=== PATIENT | female | born 1940 | race Caucasian/White ===

== ENCOUNTER → 2016-07-17 | Outpatient (CLI) | payer MEDICARE, BC ==
--- NOTE | 2016-07-17 12:48 | FL ---
EXAMINATION TYPE: FL barium swallow w video DATE OF EXAM: 07/17/2016 11:52 AM COMPARISON: NONE HISTORY: Dysphasia, food sticking in upper throat TECHNIQUE: Fluoroscopy. FINDINGS: Fluoroscopic guidance was provided for the procedure performed in conjunction with the [facility] pathology department. Please see complete report forthcoming from the Speech Pathology departmen t. Various consistencies from thin liquid to solids were administered. No aspiration or penetration was evident. No significant pooling was observed in the vallecula. There was normal propulsion of the bolus within the hypopharynx. Note is made of some presbyesophagus with secondary and tertiary contractions within the esophagus. IMPRESSION: 1. Normal modified barium swallow. 2. Presbyesophagus.
== END | disposition home or self-care (01) ==
LOC: RADFLMAIN 11:07
PROVIDERS: ATTEND Psychiatry & Neurology Neurology
DX: K22.8 Other specified diseases of esophagus (principal)
CPT/HCPCS: 74230

== ENCOUNTER 2017-06-05 17:35 | Inpatient (IN) | payer MEDICARE, BC ==
[2017-06-05] MEDS ORDERED: SODIUM CHLORIDE 0.9% 1,000 ML IV ONE (17:39)
--- NOTE | 2017-06-05 17:55 | ED ---
General Adult HPI - General Chief complaint: Altered Mental Status Stated complaint: Altered mental status Time Seen by Provider: 06/05/17 17:39 Source: patient, RN notes reviewed, old records reviewed Mode of arrival: EMS Limitations: altered mental status - History of Present Illness Initial comments: 77-year-old presents with chief complaint of confusion. Patient is normally alert and oriented 4, according to EMS she was alert and oriented 2. Patient was seen normal. This morning with normal mentation. No history of cough or dyspnea, no history nausea vomiting or diarrhea. Patient is alert and oriented 2 with time my evaluation, she has no pain complaints. Further history will be obtained from the patient's family. - Related Data Home Medications Medication Instructions Recorded Confirmed Levothyroxine Sodium [Synthroid] 50 mcg PO DAILY 11/06/13 06/05/17 Multivitamin/Iron/Folic Acid 1 tab PO DAILY 11/06/13 06/05/17 [Centrum Complete Multivit Tab] Spironolactone [Aldactone] 25 mg PO DAILY 11/06/13 06/05/17 rOPINIRole HCL [Requip] 2 mg PO BID 11/06/13 06/05/17 Calcium Carbonate [Calcium] 600 mg PO DAILY 09/24/15 06/05/17 Furosemide [Lasix] 20 mg PO DAILY 09/24/15 06/05/17 L.acidoph,Paracasei, B.lactis 1 cap PO DAILY 09/24/15 06/05/17 [Probiotic] Omeprazole 20 mg PO DAILY 09/24/15 06/05/17 Amoxicillin 2,000 mg PO ONCE 06/05/17 06/05/17 Carvedilol [Coreg] 6.25 mg PO BID 06/05/17 06/05/17 Gabapentin [Neurontin] 300 mg PO DAILY 06/05/17 06/05/17 HYDROcodone/APAP 10-325MG [[place] 1 tab PO Q6H PRN 06/05/17 06/05/17 10-325] Allergies Allergy/AdvReac Type Severity Reaction Status Date / Time adhesive tape AdvReac Rash/Hives Verified 06/05/17 17:49 Calcium Channel Blocking AdvReac Unknown Verified 06/05/17 18:06 Agent Dilt diclofenac sodium AdvReac Rash/Hives Verified 06/05/17 17:49 [From Voltaren] lansoprazole [From Prevacid] AdvReac Diarrhea Verified 06/05/17 17:49 meclofenamate sodium AdvReac Rash/Hives Verified 06/05/17 17:49 [From Meclomen] minocycline [Minocycline] AdvReac Unknown Verified 06/05/17 17:49 NSAIDS (Non-Steroidal AdvReac Unknown Verified 06/05/17 17:49 Anti-Inflamma pregabalin [From Lyrica] AdvReac Swelling Verified 06/05/17 17:49 sertraline HCl [From Zoloft] AdvReac Diarrhea Verified 06/05/17 17:49 Sulfa (Sulfonamide AdvReac Rash/Hives Verified 06/05/17 17:49 Antibiotics) Review of Systems ROS Statement: Those systems with pertinent positive or pertinent negative responses have been documented in the HPI. ROS Other: All systems not noted in ROS Statement are negative. 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, hialtal hernia, shingles>10 years ago, History of Any Multi-Drug Resistant Organisms: None Reported Past Surgical History: Breast Surgery, Hernia Repair, Hysterectomy, Joint Replacement Additional Past Surgical History / Comment(s): ron total knee replacements ; right total shoulder surgery;lumpectomy left breast, deviated septum repari,jaw sx for overbite,DeQuervains release rt wrist, rt wrist tendon lenghtening,d&c, lt knee partial synovectomy 1983,ron carpal tunnel release/ulnar nerve, synovectomy w/partial resection ulnar styloid lt wrist,radioulnar jt,resection ulnar head tendon lt wrist,chondroplasty,lat tibial plateau.exc trapezium w/ ligament reconstruction,arthroplasty lt thumb/ Past Anesthesia/Blood Transfusion Reactions: Postoperative Nausea & Vomiting ( PONV) Additional Past Anesthesia/Blood Transfusion Reaction / Comment(s): past blood transfusion after knee sx- no reaction. Past Psychological History: Anxiety, Depression Smoking Status: Never smoker Past Alcohol Use History: None Reported Past Drug Use History: None Reported - Past Family History Mother Family Medical History: Cancer, CVA/TIA Additional Family Medical History / Comment(s): tia's and rectal cancer-lived to be 99 Father Additional Family Medical History / Comment(s): at age 59 from als General Exam Limitations: altered mental status General appearance: alert, in no apparent distress Head exam: Present: atraumatic, normocephalic Eye exam: Present: normal appearance, PERRL, EOMI ENT exam: Present: mucous membranes dry Neck exam: Present: normal inspection. Absent: tenderness, meningismus Respiratory exam: Present: normal lung sounds bilaterally. Absent: respiratory distress, wheezes Cardiovascular Exam: Present: regular rate, normal rhythm GI/Abdominal exam: Present: soft. Absent: distended, tenderness Extremities exam: Present: normal inspection, normal capillary refill. Absent: pedal edema Neurological exam: Present: alert, CN II-XII intact. Absent: oriented X3, motor sensory deficit Skin exam: Present: warm, dry, intact. Absent: cyanosis, diaphoretic Course Vital Signs 06/05/17 06/05/17 17:43 19:32 Temperature 96.9 F L Pulse Rate 82 78 Respiratory 22 18 Rate Blood Pressure 170/85 137/70 O2 Sat by Pulse 93 L 99 Oximetry - Reevaluation(s) Reevaluation #1: 06/05/17 19:34 History obtained from the patient's son, according to patient's son she has had several falls over the past several weeks, she is also had decreased appetite and is barely been eating anything. Her family doctor is aware of this. Confusion began today although the onset is uncertain. She does have caregivers throughout the day. EKG Findings - EKG Comments: EKG Findings:: EKG is poor baseline secondary to tremor, sinus rhythm with sinus arrhythmia, ventricular rate 66, para 184, QS duration 84, there is T- wave abnormality in the lateral precordium, voltage criteria for LVH, no ST segment elevation. Medical Decision Making - Medical Decision Making 69 H old female presenting with altered mental status, worsening confusion over the past several hours. Patient is nonfocal on neurologic examination. She is alert and oriented although she is unable to give a complete history. Patient' s son states she has had intermittent confusion over the past several weeks, as well as decreased by mouth intake. CT was obtained, there is no intracranial hemorrhage, there is a hypodensity in the right parietal lobe concerning for cortical infarct. Given the unknown onset of symptoms, as well as waxing and waning confusion with nonfocal neurological exam and NIH of 0, she is not a candidate for TPA. X-ray shows pleural reaction right lung base, no focal pneumonia. Creatinine is worsened 1.3 from baseline 0.3. Troponin is also elevated with some nonspecific EKG changes. Given the patient's presentation, and lack of chest pain this number will be trended with no additional acute management in the emergency department. Both stroke and elevated troponin are discussed with the patient's son who is her power of claim attorney, he is a nurse and does not want any aggressive measures for his mother. - Lab Data Result diagrams: 06/05/17 18:20 06/05/17 18:20 Lab Results 06/05/17 06/05/17 06/05/17 Range/Units 18:06 18:20 18:20 WBC 9.3 (3.8-10.6) k/uL RBC 4.68 (3.80-5.40) m/uL Hgb 12.9 (11.4-16.0) gm/dL Hct 39.7 (34.0-46.0) % MCV 84.8 (80.0-100.0) fL MCH 27.6 (25.0-35.0) pg MCHC 32.6 (31.0-37.0) g/dL RDW 17.0 H (11.5-15.5) % Plt Count 167 (150-450) k/uL Neutrophils % 85 % Lymphocytes % 7 % Monocytes % 6 % Eosinophils % 1 % Basophils % 0 % Neutrophils # 7.9 H (1.3-7.7) k/uL Lymphocytes # 0.7 L (1.0-4.8) k/uL Monocytes # 0.5 (0-1.0) k/uL Eosinophils # 0.1 (0-0.7) k/uL Basophils # 0.0 (0-0.2) k/uL Anisocytosis Slight PT (9.0-12.0) sec INR (<1.2) APTT (22.0-30.0) sec VBG pH (7.31-7.41) VBG pCO2 (37-51) mmHg VBG HCO3 (24-28) mmol/L Sodium (137-145) mmol/L Potassium (3.5-5.1) mmol/L Chloride (98-107) mmol/L Carbon Dioxide (22-30) mmol/L Anion Gap mmol/L BUN (7-17) mg/dL Creatinine (0.52-1.04) mg/dL Est GFR (MDRD) Af Amer (>60 ml/min/1.73 sqM) Est GFR (MDRD) Non-Af (>60 ml/min/1.73 sqM) Glucose (74-99) mg/dL POC Glucose (mg/dL) 118 H (75-99) mg/dL POC Glu Box Toe Cutter ID Jose Ramon Nichols Plasma Lactic Acid Triston (0.7-2.0) mmol/L Calcium (8.4-10.2) mg/dL Total Bilirubin (0.2-1.3) mg/dL AST (14-36) U/L ALT (9-52) U/L Alkaline Phosphatase (38-126) U/L Total Creatine Kinase 40 (30-135) U/L CK-MB (CK-2) 6.2 H* (0.0-2.4) ng/mL CK-MB (CK-2) Rel Index 15.5 Troponin I 0.052 H* (0.000-0.034) ng/mL Total Protein (6.3-8.2) g/dL Albumin (3.5-5.0) g/dL Influenza Type A RNA (Not Detectd) Influenza Type B (PCR) (Not Detectd) 06/05/17 06/05/17 06/05/17 Range/Units 18:20 18:20 18:20 WBC (3.8-10.6) k/uL RBC (3.80-5.40) m/uL Hgb (11.4-16.0) gm/dL Hct (34.0-46.0) % MCV (80.0-100.0) fL MCH (25.0-35.0) pg MCHC (31.0-37.0) g/dL RDW (11.5-15.5) % Plt Count (150-450) k/uL Neutrophils % % Lymphocytes % % Monocytes % % Eosinophils % % Basophils % % Neutrophils # (1.3-7.7) k/uL Lymphocytes # (1.0-4.8) k/uL Monocytes # (0-1.0) k/uL Eosinophils # (0-0.7) k/uL Basophils # (0-0.2) k/uL Anisocytosis PT 9.6 (9.0-12.0) sec INR 1.0 (<1.2) APTT 25.3 (22.0-30.0) sec VBG pH (7.31-7.41) VBG pCO2 (37-51) mmHg VBG HCO3 (24-28) mmol/L Sodium 139 (137-145) mmol/L Potassium 3.6 (3.5-5.1) mmol/L Chloride 97 L (98-107) mmol/L Carbon Dioxide 29 (22-30) mmol/L Anion Gap 13 mmol/L BUN 35 H (7-17) mg/dL Creatinine 1.30 H (0.52-1.04) mg/dL Est GFR (MDRD) Af Amer 48 (>60 ml/min/1.73 sqM) Est GFR (MDRD) Non-Af 40 (>60 ml/min/1.73 sqM) Glucose 119 H (74-99) mg/dL POC Glucose (mg/dL) (75-99) mg/dL POC Glu Box Toe Cutter ID Plasma Lactic Acid Triston (0.7-2.0) mmol/L Calcium 9.7 (8.4-10.2) mg/dL Total Bilirubin 1.2 (0.2-1.3) mg/dL AST 35 (14-36) U/L ALT 55 H (9-52) U/L Alkaline Phosphatase 146 H (38-126) U/L Total Creatine Kinase (30-135) U/L CK-MB (CK-2) (0.0-2.4) ng/mL CK-MB (CK-2) Rel Index Troponin I (0.000-0.034) ng/mL Total Protein 6.2 L (6.3-8.2) g/dL Albumin 3.4 L (3.5-5.0) g/dL Influenza Type A RNA Not Detected (Not Detectd) Influenza Type B (PCR) Not Detected (Not Detectd) 06/05/17 06/05/17 Range/Units 18:20 18:20 WBC (3.8-10.6) k/uL RBC (3.80-5.40) m/uL Hgb (11.4-16.0) gm/dL Hct (34.0-46.0) % MCV (80.0-100.0) fL MCH (25.0-35.0) pg MCHC (31.0-37.0) g/dL RDW (11.5-15.5) % Plt Count (150-450) k/uL Neutrophils % % Lymphocytes % % Monocytes % % Eosinophils % % Basophils % % Neutrophils # (1.3-7.7) k/uL Lymphocytes # (1.0-4.8) k/uL Monocytes # (0-1.0) k/uL Eosinophils # (0-0.7) k/uL Basophils # (0-0.2) k/uL Anisocytosis PT (9.0-12.0) sec INR (<1.2) APTT (22.0-30.0) sec VBG pH 7.43 H (7.31-7.41) VBG pCO2 46 (37-51) mmHg VBG HCO3 30 H (24-28) mmol/L Sodium (137-145) mmol/L Potassium (3.5-5.1) mmol/L Chloride (98-107) mmol/L Carbon Dioxide (22-30) mmol/L Anion Gap mmol/L BUN (7-17) mg/dL Creatinine (0.52-1.04) mg/dL Est GFR (MDRD) Af Amer (>60 ml/min/1.73 sqM) Est GFR (MDRD) Non-Af (>60 ml/min/1.73 sqM) Glucose (74-99) mg/dL POC Glucose (mg/dL) (75-99) mg/dL POC Glu Box Toe Cutter ID Plasma Lactic Acid [place] 0.9 (0.7-2.0) mmol/L Calcium (8.4-10.2) mg/dL Total Bilirubin (0.2-1.3) mg/dL AST (14-36) U/L ALT (9-52) U/L Alkaline Phosphatase (38-126) U/L Total Creatine Kinase (30-135) U/L CK-MB (CK-2) (0.0-2.4) ng/mL CK-MB (CK-2) Rel Index Troponin I (0.000-0.034) ng/mL Total Protein (6.3-8.2) g/dL Albumin (3.5-5.0) g/dL Influenza Type A RNA (Not Detectd) Influenza Type B (PCR) (Not Detectd) Critical Care Time Critical Care Time: Yes Total Critical Care Time: 35 Disposition Clinical Impression: CVA (cerebral vascular accident), Elevated troponin, Acute kidney injury Disposition: ADMITTED IP TO THIS [facility] Condition: Stable Referrals: Nonstaff,Physician [REFERRING] - 1-2 days Decision to Admit Reason: Admit from EC Decision Date: 06/05/17 Decision Time: 19:38
--- NOTE | 2017-06-05 18:09 | CT ---
EXAMINATION TYPE: CT brain wo con DATE OF EXAM: 06/05/2017 COMPARISON: NONE HISTORY: Altered mental status CT DLP: 1058 mGycm Automated exposure control for dose reduction was used. FINDINGS: There is mild cerebral cortical atrophy. There is hypodensity in the periventricular white matter in the parietal and occipital lobes. There is no mass effect nor midline shift. There is no sign of intr acranial hemorrhage. The calvarium is intact. IMPRESSION: CEREBRAL ATROPHY. WHITE MATTER CHANGES PROBABLY DUE TO CHRONIC SMALL VESSEL ISCHEMIA. NO ACUTE INTRAC RANIAL ABNORMALITY. THERE IS MORE NOTICEABLE WHITE MATTER HYPODENSITY IN THE RIGHT PARIETAL LOBE AND SOME SMALL AREA OF CORTICAL INFARCT IS POSSIBLE.
[2017-06-05 18:27] LABS: Glucose,Whole Blood 118 mg/dL (75-99)
[2017-06-05 18:37] LABS: Anisocytosis Slight; Basophils % (A) 0 %; Eosinophils # (A) 0.1 k/uL (0-0.7); Eosinophils % (A) 1 %; HCT 39.7 % (34.0-46.0); HGB 12.9 gm/dL (11.4-16.0); Lymphocytes # (A) 0.7 k/uL (1.0-4.8); Lymphocytes % (A) 7 %; MCH 27.6 pg (25.0-35.0); MCHC 32.6 g/dL (31.0-37.0); MCV 84.8 fL (80.0-100.0); Mean Platelet Volume 9.3; Monocytes # (A) 0.5 k/uL (0-1.0); Monocytes % (A) 6 %; Neutrophils # (A) 7.9 k/uL (1.3-7.7); Neutrophils % (A) 85 %; Platelet Count 167 k/uL (150-450); RBC 4.68 m/uL (3.80-5.40); VBG PH 7.43 (7.31-7.41); WBC 9.3 k/uL (3.8-10.6)
[2017-06-05 18:42] LABS: Albumin 3.4 g/dL (3.5-5.0); Partial Thromboplastin Time 25.3 sec (22.0-30.0); Potassium 3.6 mmol/L (3.5-5.1); Prothrombin Time 9.6 sec (9.0-12.0); Total Protein 6.2 g/dL (6.3-8.2)
[2017-06-05 18:43] LABS: Calcium 9.7 mg/dL (8.4-10.2); Total Bilirubin 1.2 mg/dL (0.2-1.3)
[2017-06-05 19:02] LABS: Creatine Kinase MB 6.2 ng/mL (0.0-2.4); Troponin I 0.052 ng/mL (0.000-0.034)
--- NOTE | 2017-06-05 19:12 | XR ---
EXAMINATION TYPE: XR chest 2V DATE OF EXAM: 06/05/2017 COMPARISON: 03/21/2017 HISTORY: Altered mental status TECHNIQUE: Frontal and lateral views of the chest are obtained. FINDINGS: There is no heart failure nor confluent pneumonic infiltrate. Exam is limited by kyphotic posture. Thoracic aorta is atheromatous. There is coarsening of interstitial pulmonary markings. Ther e is slight blunting of right costophrenic angle. IMPRESSION: Pulmonary fibrotic changes. Mild pleural reaction at the right lung base. No heart failu re. Pleural reaction is probably new compared to old exam.
[2017-06-05 19:36] LABS: Appearance,Urine Clear (Clear); Bilirubin,Urine Negative (Negative); Blood,Urine Negative (Negative); Color,Urine Yellow; Glucose,Urine (UA) Negative (Negative); Ketones,Urine Trace (Negative); Leukocyte Esterase,Urine Negative (Negative); PH, Urine 6.5 (5.0-8.0); Protein,Urine Negative (Negative); Specific Gravity,Urine 1.011 (1.001-1.035); Urobilinogen,Urine <2.0 mg/dL (<2.0)
[2017-06-05] MEDS ORDERED: ASPIRIN 325 MG TAB PO STA (19:38)
[2017-06-05] MEDS ORDERED: SODIUM CHLORIDE 0.9% 1,000 ML IV SCH (19:45)
[2017-06-06] MEDS: CARVEDILOL 6.25 MG TAB PO SCH ×2 (01:25→04:53)
[2017-06-06] MEDS: LEVOTHYROXINE 50 MCG TAB PO SCH (04:53)
[2017-06-06 06:55] LABS: Cholesterol 213 mg/dL (<200); HDL Cholesterol 43 mg/dL (40-60); LDL Cholesterol,Calculated 140 mg/dL (0-99); Triglycerides 149 mg/dL (<150)
--- NOTE | 2017-06-06 11:54 | HP ---
HISTORY AND PHYSICAL DATE OF ADMISSION: 06/05/2017 DATE OF SERVICE: 06/05/2017 PRESENTING COMPLAINT: Short of breath, confused. HISTORY OF PRESENTING COMPLAINT: This is a patient I saw last night on . The patient follows with Dr. Donis. Chronic stable medical conditions include coronary artery disease, hypertension, hypothyroid, restless legs syndrome, fibromyalgia, GERD, rheumatoid arthritis, chronic kidney disease, urine incontinence, thoracic vertebral fracture. The patient lives at [facility]. The patient also got significant kyphosis. The patient was found earlier in the day to be somewhat more confused by the family. No real no focal symptoms. The patient has got a cough, able to give some history, but was not able to tell too much. The patient normally uses a walker, , has been falling recently. The patient has problems with the left shoulder. Appetite has gone down. Has got a cough. No obvious fever, some shortness of breath. REVIEW OF SYSTEMS: CONSTITUTIONAL: Weak, tired. HEENT: Decreased hearing. RESPIRATORY: As above. CARDIOVASCULAR: No chest pain. GASTROINTESTINAL: None. GENITOURINARY: Urine incontinence. MUSCULOSKELETAL: Pain in many joints especially the left shoulder. DERMATOLOGICAL: Some chronic skin changes. LYMPHATICS: None. PSYCHIATRY: She is confused. NEUROLOGICAL: Generalized weakness. No focal symptoms. PAST MEDICAL HISTORY: Past medical history of congestive heart failure and diastolic dysfunction, coronary artery disease, hypertension, hypothyroid, restless legs syndrome, atrial fibrillation, asthma, fibromyalgia, GERD, rheumatoid arthritis, chronic kidney disease, incontinence, thoracic vertebral fracture. Additionally, bilateral cataract, retinal damage from being on Plaquenil, hiatal hernia, shingles. PAST SURGICAL HISTORY: Breast surgery, hernia repair, hysterectomy, bilateral total knee replacement, right shoulder surgery, lumpectomy left breast, deviated septum, de Quervain release right wrist, right wrist tendon lengthening, left knee partial synovectomy, bilateral carpal tunnel release, partial resection of ulnar styloid, radioulnar resection, wrist chondroplasty, lateral tibial plateau trapezium with ligament reconstruction arthroplasty. SOCIAL HISTORY: The patient is single. Used to work in the medical field inpatient care. No smoking. No alcohol. Patient did travel outside the [place]. Has a pet canary at home. FAMILY HISTORY: Family history of rectal cancer, stroke. HOME MEDICATIONS: 1. Refresh Optive Kelvin-3 drops 1 drop both eyes daily p.r.n. 2. [place] 7.5 one tab q.4 p.r.n. 3. Baclofen 10 mg p.o. b.i.d. 4. Percocet 5 one tablet q.6 p.r.n. 5. Singulair 10 mg p.o. daily. 6. Pulmicort 0.5 b.i.d. 7. Ventolin 2.5 nebulizer q.4 p.r.n. 8. Centrum Complete 1 tablet p.o. daily. 9. Calcium 600 mg p.o. daily. 10.Perforomist 20 mcg inhalation b.i.d. 11.Synthroid 50 mcg p.o. daily. 12.Mirapex 0.5 p.o. t.i.d. 13.Hydralazine 100 mg p.o. t.i.d. 14.Aldactone 25 p.o. b.i.d. 15.Lasix 20 mg p.o. b.i.d. 16.Coreg 25 p.o. b.i.d. 17.Amoxicillin. 18.Probiotic 1 capsule p.o. daily. ALLERGIES: Allergies to ADHESIVE, CALCIUM CHANNEL [place], DICLOFENAC, PREVACID, MECLOMEN, MINOCYCLINE, NSAIDs, LYRICA, ZOLOFT, SULFA. PHYSICAL EXAMINATION: On examination, vital signs on presentation: Temperature 96.9, pulse 78, respiratory 18, blood pressure 137/70, pulse ox 99% on 2 L. GENERAL APPEARANCE: Thin build, lying in bed, tired appearing. EYES: Pupils equal. Conjunctivae normal. HENT: External appearance of nose and ears normal. Oral cavity dry. NECK: JVD unable to assess. Mass not palpable. RESPIRATORY: Effort increased. LUNGS: Diminished breath sounds. Some crackles. CARDIOVASCULAR: First and second sounds normal. No edema. ABDOMEN: Soft, nontender. Liver and spleen not palpable. LYMPHATIC: No lymph node palpable of the neck and axillae. PSYCHIATRY: The patient is only able to answer some simple questions. NEUROLOGICAL: Patient is moving her limbs. MUSCULOSKELETAL: Evidence of arthritis in both the hands. Limited range of motion especially left shoulder. INVESTIGATIONS: White count 9.3, hemoglobin 12.9. Potassium 3.6. BUN 35, creatinine 1.30. Troponin 0.052, 0.063. Influenza negative. Chest x-ray shows some fibrotic changes and there may be some infiltrate in the mid zone. ASSESSMENT: 1. Possible pneumonia causing gram-negative organism, present on admission. 2. Acute delirium, probably from above. 3. Troponin leak. Does not appear to be acute coronary syndrome, probably hemodynamic mismatch. 4. Chronic congestive heart failure from diastolic dysfunction, doubt acute exacerbation. 5. Coronary artery disease. 6. Essential hypertension. 7. Hypothyroidism. 8. Restless legs syndrome. 9. History of atrial fibrillation. 10.Moderate persistent asthma with some acute exacerbation. 11.Fibromyalgia. 12.Gastroesophageal reflux disease. 13.Rheumatoid arthritis. 14.Chronic kidney disease, stage 3, probably from nephrosclerosis. 15.Chronic urinary stress incontinence. 16.Thoracic vertebra fracture. 17.Medical debility with frequent falls. 18.Gait dysfunction, uses a walker. 19.CODE STATUS: DNR. PLAN: Home medications will be resumed. Patient is having trouble swallowing. Will get speech therapy involved. We will put the patient on IV ceftriaxone. Prognosis guarded. No family is present currently. MMODL / IJN: [id number] /
[2017-06-06] MEDS: ASPIRIN 325 MG TAB PO SCH (12:02)
--- NOTE | 2017-06-06 12:30 | P.CNPUL ---
History of Present Illness Consult date: 06/06/17 Requesting physician: Rodrigue Sibley Reason for consult: dyspnea Chief complaint: Altered mental status History of present illness: This is a very pleasant 77-year-old female patient who follows with Dr. Donis as her primary care physician. She has a history of atrial fibrillation, fibromyalgia, gastroesophageal reflux disease, hypertension, renal disease, rheumatoid arthritis, hypothyroidism. She presented here to the emergency room yesterday with altered mental status. She was complaining of intermittent periods of confusion. She was admitted for CVA, elevated troponin and acute kidney injury. Her chest x-ray shows pulmonary fibrotic changes and mild pleural reaction of the right lung base. No overt congestive heart failure. No pneumonia. Computed tomography scan of the brain reveals cerebral atrophy but no acute intracranial abnormalities. There is more noticeable white matter hypodensity in the right parietal lobe and a small area of cortical infarct possible. She is seen today in consultation on the selective care unit. She is awake and alert in no acute distress. She is oriented 3. She denies any headache dizziness or lightheadedness. No focal deficits. No leukocytosis. Hemoglobin 12.9. Creatinine 1.30. Troponin 0.052, 0.063, 0.082. Influenza screen negative. Urine is clear. She has been afebrile. Hemodynamically stable. No tachycardia. No tachypnea. Maintaining good O2 sat saturations in the high 90s on room air. Review of Systems 14 point review of system was conducted. All negative other than as mentioned in the HPI. That mainly being concerns regarding confusion. She is alert and oriented today. 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, hialtal hernia, shingles>10 years ago, recent fractured thoracic vertebrae, History of Any Multi-Drug Resistant Organisms: None Reported Past Surgical History: Breast Surgery, Hernia Repair, Hysterectomy, Joint Replacement Additional Past Surgical History / Comment(s): ron total knee replacements ; right total shoulder surgery;lumpectomy left breast, deviated septum repari,jaw sx for overbite,DeQuervains release rt wrist, rt wrist tendon lenghtening,d&c, lt knee partial synovectomy 1984,ron carpal tunnel release/ulnar nerve, synovectomy w/partial resection ulnar styloid lt wrist,radioulnar jt,resection ulnar head tendon lt wrist,chondroplasty,lat tibial plateau.exc trapezium w/ ligament reconstruction,arthroplasty lt thumb, esophagus stretched 6 times Past Anesthesia/Blood Transfusion Reactions: Postoperative Nausea & Vomiting ( PONV) Additional Past Anesthesia/Blood Transfusion Reaction / Comment(s): past blood transfusion after knee sx- no reaction. Past Psychological History: Anxiety, Depression Smoking Status: Never smoker Past Alcohol Use History: None Reported Past Drug Use History: None Reported - Past Family History Mother Family Medical History: Cancer, CVA/TIA Additional Family Medical History / Comment(s): tia's and rectal cancer-lived to be 99 Father Additional Family Medical History / Comment(s): at age 59 from als Medications and Allergies Home Medications Medication Instructions Recorded Confirmed Type Levothyroxine Sodium [Synthroid] 50 mcg PO DAILY 11/06/13 06/05/17 History Multivitamin/Iron/Folic Acid 1 tab PO DAILY 11/06/13 06/05/17 History [Centrum Complete Multivit Tab] Spironolactone [Aldactone] 25 mg PO BID 11/06/13 06/05/17 History Calcium Carbonate [Calcium] 600 mg PO DAILY 09/24/15 06/05/17 History Furosemide [Lasix] 20 mg PO BID 09/24/15 06/05/17 History L.acidoph,Paracasei, B.lactis 1 cap PO DAILY 09/24/15 06/05/17 History [Probiotic] Albuterol Nebulized [Ventolin 2.5 mg INHALATION RT-Q4H PRN 06/05/17 06/05/17 History Nebulized] Amoxicillin 2,000 mg PO ONCE 06/05/17 06/05/17 History Baclofen [Lioresal] 10 mg PO BID 06/05/17 06/05/17 History Budesonide [Pulmicort] 0.5 mg INHALATION RT-BID 06/05/17 06/05/17 History Carboxymethyl/Gly/Poly80/Pf 1 dropper BOTH EYES DAILY PRN 06/05/17 06/05/17 History [Refresh Optive Kelvin-3 Drops] Carvedilol [Coreg] 25 mg PO BID 06/05/17 06/05/17 History Formoterol Fumarate [Perforomist] 20 mcg INHALATION RT-BID 06/05/17 06/05/17 History HYDROcodone/APAP 7.5-325MG [[place] 1 tab PO Q4-6H PRN 06/05/17 06/05/17 History 7.5-325] Montelukast [Singulair] 10 mg PO DAILY 06/05/17 06/05/17 History Pramipexole [Mirapex] 0.5 mg PO TID 06/05/17 06/05/17 History hydrALAZINE HCL [Apresoline] 100 mg PO TID 06/05/17 06/05/17 History oxyCODONE-APAP 5-325MG [Percocet 1 tab PO Q6HR PRN 06/05/17 06/05/17 History 5-325 mg] Allergies Allergy/AdvReac Type Severity Reaction Status Date / Time adhesive tape AdvReac Rash/Hives Verified 06/05/17 17:49 Calcium Channel Blocking AdvReac Unknown Verified 06/05/17 18:06 Agent Dilt diclofenac sodium AdvReac Rash/Hives Verified 06/05/17 17:49 [From Voltaren] lansoprazole [From Prevacid] AdvReac Diarrhea Verified 06/05/17 17:49 meclofenamate sodium AdvReac Rash/Hives Verified 06/05/17 17:49 [From Meclomen] minocycline [Minocycline] AdvReac Unknown Verified 06/05/17 17:49 NSAIDS (Non-Steroidal AdvReac Unknown Verified 06/05/17 17:49 Anti-Inflamma pregabalin [From Lyrica] AdvReac Swelling Verified 06/05/17 17:49 sertraline HCl [From Zoloft] AdvReac Diarrhea Verified 06/05/17 17:49 Sulfa (Sulfonamide AdvReac Rash/Hives Verified 06/05/17 17:49 Antibiotics) Physical Exam Vitals: Vital Signs Temp Pulse Pulse Resp BP BP Pulse Ox 06/06/17 08:38 96.8 F L 69 16 121/61 97 06/06/17 08:00 96.8 F L 69 16 121/61 97 06/06/17 05:30 78 17 06/06/17 04:15 98.5 F 78 17 145/74 98 06/06/17 01:25 78 17 06/06/17 01:20 74 17 144/70 96 06/05/17 21:15 67 17 06/05/17 21:01 98.1 F 67 17 142/76 98 06/05/17 20:33 60 16 162/72 98 06/05/17 19:32 96.9 F L 78 18 137/70 99 06/05/17 18:00 69 20 145/76 96 06/05/17 17:43 82 22 170/85 93 L Intake and Output 06/05/17 06/06/17 06/06/17 22:59 06:59 14:59 Intake Total 100 1100 Balance 100 1100 Intake: Intake, IV Titration 100 1100 Amount Sodium Chloride 0.9% 1, 100 1100 000 ml @ 100 mls/hr IV . Q10H [facility] Rx#:[id number] Oral 0 0 Other: Voiding Method Diaper Diaper Diaper Incontinent Incontinent Incontinent Weight 50.349 kg 48.3 kg 48.3 kg Patient Weight 06/07/17 06:59 Weight 48.3 kg GENERAL EXAM: Frail, cachectic. Alert, comfortable in no apparent distress. HEAD: Normocephalic. EYES: Normal reaction of pupils, equal size. NOSE: Clear with pink turbinates. THROAT: No erythema or exudates. NECK: No masses, no JVD. CHEST: No chest wall deformity. LUNGS: Equal air entry with no crackles, wheeze, rhonchi or dullness. CVS: S1 and S2 normal with no audible murmur, regular rhythm. ABDOMEN: No hepatosplenomegaly, normal bowel sounds, no guarding or rigidity. SPINE: Severe kyphoscoliosis. SKIN: No rashes CENTRAL NERVOUS SYSTEM: No focal deficits, tone is normal in all 4 extremities. EXTREMITIES: Evidence of rheumatoid arthritis. There is no peripheral edema. No clubbing, no cyanosis. Peripheral pulses are intact. Results - Laboratory Findings CBC and BMP: 06/05/17 18:20 06/05/17 18:20 PT/INR, D-dimer PT 9.6 sec (9.0-12.0) 06/05/17 18:20 INR 1.0 (<1.2) 06/05/17 18:20 Abnormal lab findings: Abnormal Labs 06/05/17 06/05/17 06/05/17 18:06 18:20 18:20 RDW 17.0 H Neutrophils # 7.9 H Lymphocytes # 0.7 L VBG pH VBG HCO3 Chloride BUN Creatinine Glucose POC Glucose (mg/dL) 118 H ALT Alkaline Phosphatase CK-MB (CK-2) 6.2 H* Troponin I 0.052 H* Total Protein Albumin Cholesterol LDL Cholesterol, Calc Urine Ketones 06/05/17 06/05/17 06/05/17 18:20 18:20 19:30 RDW Neutrophils # Lymphocytes # VBG pH 7.43 H VBG HCO3 30 H Chloride 97 L BUN 35 H Creatinine 1.30 H Glucose 119 H POC Glucose (mg/dL) ALT 55 H Alkaline Phosphatase 146 H CK-MB (CK-2) Troponin I Total Protein 6.2 L Albumin 3.4 L Cholesterol LDL Cholesterol, Calc Urine Ketones Trace H 06/05/17 06/06/17 06/06/17 23:30 06:14 06:14 RDW Neutrophils # Lymphocytes # VBG pH VBG HCO3 Chloride BUN Creatinine Glucose POC Glucose (mg/dL) ALT Alkaline Phosphatase CK-MB (CK-2) Troponin I 0.063 H* 0.082 H* Total Protein Albumin Cholesterol 213 H LDL Cholesterol, Calc 140 H Urine Ketones - Diagnostic Findings Chest x-ray: image reviewed Assessment and Plan Assessment: Impression: #1 Altered mental status of unclear etiology. ET scan of the brain revealed no acute intracranial abnormality. There is more noticeable white matter hypodensity in the right parietal lobe and some small area of cortical infarct possible. #2 Troponin leaked out acute coronary syndrome. #3 History of atrial fibrillation. #4 Fibromyalgia. #5 Rheumatoid arthritis. #6 Hypothyroidism. #7 Hypertension. #8 Acute on chronic renal failure. #9 Dysphagia. Plan: The patient was seen and evaluated by Dr. Goel. Her chest x-ray and labs reviewed. There is no evidence of pneumonia at this time. We will continue with her current medications. Neurology consult is pending. We'll increase activity as tolerated. We'll continue to follow and make further recommendations based on her clinical status. I, the cosigning physician, performed a history & physical examination of the patient. Lungs sounds are clear. Maintaining good O2 saturations in the 90s on room air. I discussed the assessment and plan of care with my nurse practitioner, Lilo Kinsey. I attest to the above on sedation as dictated by her. Time with Patient: Greater than 30
--- NOTE | 2017-06-06 15:47 | P.CRDCN ---
History of Present Illness Consult date: 06/06/17 Requesting physician: Rodrigue Sibley Reason for Consult (text): abnormal troponin Chief complaint: Confusion History of present illness: This is a 77-year-old female with history of paroxysmal atrial fibrillation, fibromyalgia, hypertension, rheumatoid arthritis, renal disease, hypothyroidism. She originally presented to the hospital with confusion and mental status changes. Patient was admitted to rule out CVA, cardiology consultation was requested because of abnormal troponin values. Chest x-ray reveals pulmonary fibrotic changes and mild pleural reaction of the right lung base. No overt congestive heart failure. No pneumonia. Computed tomography scan of the brain revealed cerebral atrophy but no acute intracranial abnormalities. Patient was seen and examined sitting up in a chair at bedside today. Responding only minimally verbally. But she denied any chest discomfort , no headache, no lightheadedness or dizziness. Hemoglobin 12.9, creatinine 1.3 , troponins 0.05, 0.06, 0.08. Influenza negative. Urine was clear. She has been afebrile and hemodynamically stable. Maintaining in the 90s on room air. Her EKG showed normal sinus rhythm with lateral ST-T wave changes. 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, hialtal hernia, shingles>10 years ago, recent fractured thoracic vertebrae, History of Any Multi-Drug Resistant Organisms: None Reported Past Surgical History: Breast Surgery, Hernia Repair, Hysterectomy, Joint Replacement Additional Past Surgical History / Comment(s): ron total knee replacements ; right total shoulder surgery;lumpectomy left breast, deviated septum repari,jaw sx for overbite,DeQuervains release rt wrist, rt wrist tendon lenghtening,d&c, lt knee partial synovectomy 1983,ron carpal tunnel release/ulnar nerve, synovectomy w/partial resection ulnar styloid lt wrist,radioulnar jt,resection ulnar head tendon lt wrist,chondroplasty,lat tibial plateau.exc trapezium w/ ligament reconstruction,arthroplasty lt thumb, esophagus stretched 6 times Past Anesthesia/Blood Transfusion Reactions: Postoperative Nausea & Vomiting ( PONV) Additional Past Anesthesia/Blood Transfusion Reaction / Comment(s): past blood transfusion after knee sx- no reaction. Past Psychological History: Anxiety, Depression Smoking Status: Never smoker Past Alcohol Use History: None Reported Past Drug Use History: None Reported - Past Family History Mother Family Medical History: Cancer, CVA/TIA Additional Family Medical History / Comment(s): tia's and rectal cancer-lived to be 99 Father Additional Family Medical History / Comment(s): at age 59 from als Medications and Allergies Home Medications Medication Instructions Recorded Confirmed Type Levothyroxine Sodium [Synthroid] 50 mcg PO DAILY 11/06/13 06/05/17 History Multivitamin/Iron/Folic Acid 1 tab PO DAILY 11/06/13 06/05/17 History [Centrum Complete Multivit Tab] Spironolactone [Aldactone] 25 mg PO BID 11/06/13 06/05/17 History Calcium Carbonate [Calcium] 600 mg PO DAILY 09/24/15 06/05/17 History Furosemide [Lasix] 20 mg PO BID 09/24/15 06/05/17 History L.acidoph,Paracasei, B.lactis 1 cap PO DAILY 09/24/15 06/05/17 History [Probiotic] Albuterol Nebulized [Ventolin 2.5 mg INHALATION RT-Q4H PRN 06/05/17 06/05/17 History Nebulized] Amoxicillin 2,000 mg PO ONCE 06/05/17 06/05/17 History Baclofen [Lioresal] 10 mg PO BID 06/05/17 06/05/17 History Budesonide [Pulmicort] 0.5 mg INHALATION RT-BID 06/05/17 06/05/17 History Carboxymethyl/Gly/Poly80/Pf 1 dropper BOTH EYES DAILY PRN 06/05/17 06/05/17 History [Refresh Optive Kelvin-3 Drops] Carvedilol [Coreg] 25 mg PO BID 06/05/17 06/05/17 History Formoterol Fumarate [Perforomist] 20 mcg INHALATION RT-BID 06/05/17 06/05/17 History HYDROcodone/APAP 7.5-325MG [[place] 1 tab PO Q4-6H PRN 06/05/17 06/05/17 History 7.5-325] Montelukast [Singulair] 10 mg PO DAILY 06/05/17 06/05/17 History Pramipexole [Mirapex] 0.5 mg PO TID 06/05/17 06/05/17 History hydrALAZINE HCL [Apresoline] 100 mg PO TID 06/05/17 06/05/17 History oxyCODONE-APAP 5-325MG [Percocet 1 tab PO Q6HR PRN 06/05/17 06/05/17 History 5-325 mg] Allergies Allergy/AdvReac Type Severity Reaction Status Date / Time adhesive tape AdvReac Rash/Hives Verified 06/05/17 17:49 Calcium Channel Blocking AdvReac Unknown Verified 06/05/17 18:06 Agent Dilt diclofenac sodium AdvReac Rash/Hives Verified 06/05/17 17:49 [From Voltaren] lansoprazole [From Prevacid] AdvReac Diarrhea Verified 06/05/17 17:49 meclofenamate sodium AdvReac Rash/Hives Verified 06/05/17 17:49 [From Meclomen] minocycline [Minocycline] AdvReac Unknown Verified 06/05/17 17:49 NSAIDS (Non-Steroidal AdvReac Unknown Verified 06/05/17 17:49 Anti-Inflamma pregabalin [From Lyrica] AdvReac Swelling Verified 06/05/17 17:49 sertraline HCl [From Zoloft] AdvReac Diarrhea Verified 06/05/17 17:49 Sulfa (Sulfonamide AdvReac Rash/Hives Verified 06/05/17 17:49 Antibiotics) Physical Exam Vitals: Vital Signs Temp Pulse Pulse Resp BP BP Pulse Ox 06/06/17 12:00 97 F L 91 16 145/82 100 06/06/17 10:38 97 F L 16 145/82 100 06/06/17 08:38 96.8 F L 69 16 121/61 97 06/06/17 08:00 96.8 F L 69 16 121/61 97 06/06/17 05:30 78 17 06/06/17 04:15 98.5 F 78 17 145/74 98 06/06/17 01:25 78 17 06/06/17 01:20 74 17 144/70 96 06/05/17 21:15 67 17 06/05/17 21:01 98.1 F 67 17 142/76 98 06/05/17 20:33 60 16 162/72 98 06/05/17 19:32 96.9 F L 78 18 137/70 99 06/05/17 18:00 69 20 145/76 96 06/05/17 17:43 82 22 170/85 93 L Intake and Output 06/06/17 06/06/17 06/06/17 06:59 14:59 22:59 Intake Total 1100 700 Balance 1100 700 Intake: Intake, IV Titration 1100 700 Amount Sodium Chloride 0.9% 1, 1100 700 000 ml @ 100 mls/hr IV . Q10H [facility] Rx#:[id number] Oral 0 Other: Voiding Method Diaper Diaper Incontinent Incontinent Weight 48.3 kg 48.3 kg Patient Weight 06/07/17 06:59 Weight 48.3 kg PHYSICAL EXAMINATION: HEENT: Head is atraumatic, normocephalic. Pupils equal, round. Neck is supple. There is no elevated jugular venous pressure. HEART EXAMINATION: Heart S1, S2 normal. No murmur or gallop heard. CHEST EXAMINATION: Lungs are clear to auscultation and precussion. No chest wall tenderness is noted on palpation or with deep breathing. ABDOMEN: Soft, nontender. Bowel sounds are heard. No organomegaly noted]. EXTREMITIES:[ 2+ peripheral pulses with no evidence of peripheral edema and no calf tenderness noted]. NEUROLOGIC [patient is awake, alert and oriented -1.] . Results 06/05/17 18:20 06/05/17 18:20 Cardiac Enzymes 06/05/17 06/05/17 06/05/17 Range/Units 18:20 18:20 23:30 AST 35 (14-36) U/L CK-MB (CK-2) 6.2 H* (0.0-2.4) ng/mL Troponin I 0.052 H* 0.063 H* (0.000-0.034) ng/mL 06/06/17 Range/Units 06:14 AST (14-36) U/L CK-MB (CK-2) (0.0-2.4) ng/mL Troponin I 0.082 H* (0.000-0.034) ng/mL Coagulation 06/05/17 Range/Units 18:20 PT 9.6 (9.0-12.0) sec APTT 25.3 (22.0-30.0) sec Lipids 06/06/17 Range/Units 06:14 Triglycerides 149 (<150) mg/dL Cholesterol 213 H (<200) mg/dL HDL Cholesterol 43 (40-60) mg/dL CBC 06/05/17 Range/Units 18:20 WBC 9.3 (3.8-10.6) k/uL RBC 4.68 (3.80-5.40) m/uL Hgb 12.9 (11.4-16.0) gm/dL Hct 39.7 (34.0-46.0) % Plt Count 167 (150-450) k/uL Comprehensive Metabolic Panel 06/05/17 Range/Units 18:20 Sodium 139 (137-145) mmol/L Potassium 3.6 (3.5-5.1) mmol/L Chloride 97 L (98-107) mmol/L Carbon Dioxide 29 (22-30) mmol/L BUN 35 H (7-17) mg/dL Creatinine 1.30 H (0.52-1.04) mg/dL Glucose 119 H (74-99) mg/dL Calcium 9.7 (8.4-10.2) mg/dL AST 35 (14-36) U/L ALT 55 H (9-52) U/L Alkaline Phosphatase 146 H (38-126) U/L Total Protein 6.2 L (6.3-8.2) g/dL Albumin 3.4 L (3.5-5.0) g/dL Current Medications Generic Name Dose Route Start Last Admin Trade Name Freq PRN Reason Stop Dose Admin Hydrocodone Bitart/Acetaminophen 1 each 06/05/17 19:41 Moro 10 PO Q6H PRN Pain Albuterol Sulfate 2.5 mg 06/06/17 12:13 Ventolin Nebulized INHALATION RT-Q4H PRN asthma Aspirin 325 mg 06/06/17 12:00 06/06/17 12:02 Aspirin PO 325 mg DAILY NIKO Administration Baclofen 10 mg 06/06/17 21:00 Lioresal PO BID NIKO Budesonide 0.5 mg 06/06/17 20:00 Pulmicort INHALATION RT-BID NIKO Carvedilol 25 mg 06/06/17 17:30 Coreg PO BID-W/MEALS NIKO Ceftriaxone Sodium 1,000 mg 06/06/17 15:45 Rocephin IVP Q24HR [facility] Formoterol Fumarate 20 mcg 06/06/17 20:00 Perforomist INHALATION RT-BID NIKO Furosemide 20 mg 06/06/17 16:00 Lasix PO BID@0900,1600 [facility] Hydralazine HCl 100 mg 06/06/17 16:00 Apresoline PO TID NIKO Levothyroxine Sodium 50 mcg 06/06/17 06:30 06/06/17 04:53 Synthroid PO Not Given 0630 NIKO Montelukast Sodium 10 mg 06/07/17 09:00 Singulair PO DAILY [facility] Pramipexole Dihydrochloride 0.5 mg 06/06/17 16:00 Mirapex PO TID NIKO Spironolactone 25 mg 06/07/17 09:00 Aldactone PO DAILY [facility]KO Intake and Output 06/06/17 06/06/17 06/06/17 06:59 14:59 22:59 Intake Total 1100 700 Balance 1100 700 Intake: Intake, IV Titration 1100 700 Amount Sodium Chloride 0.9% 1, 1100 700 000 ml @ 100 mls/hr IV . Q10H [facility] Rx#:[id number] Oral 0 Other: Voiding Method Diaper Diaper Incontinent Incontinent Weight 48.3 kg 48.3 kg Patient Weight 06/07/17 06:59 Weight 48.3 kg 06/05/17 18:20 06/05/17 18:20 EKG Interpretations (text) EKG shows normal sinus rhythm with lateral ST-T wave changes Assessment and Plan Plan: Assessment and plan #1 Altered mental status of unclear etiology. CT scan of the brain revealed no acute intracranial abnormality. There is more noticeable white matter hypodensity in the right parietal lobe and some small area of cortical infarct possible. #2 Troponin abnormality, not consistent with acute coronary syndrome likely secondary to oxygen supply and demand mismatch #3 History of atrial fibrillation. #4 Fibromyalgia. #5 Rheumatoid arthritis. #6 Hypothyroidism. #7 Hypertension. #8 Acute on chronic renal failure. #9 Dysphagia. Plan Will obtain an echocardiogram with Doppler study. Continue with current medications. Further recommendations to follow. DNP note has been reviewed, I agree with a documented findings and plan of care. Patient was seen and examined.
[2017-06-06] MEDS: FUROSEMIDE 20 MG TAB PO SCH (16:00)
[2017-06-06] MEDS: PRAMIPEXOLE 0.5 MG TAB PO SCH ×2 (16:00→21:43)
[2017-06-06] MEDS: hydrALAZINE HCL 50 MG TAB PO SCH ×2 (16:00→21:44)
--- NOTE | 2017-06-06 16:52 | PN ---
PROGRESS NOTE DATE OF SERVICE: 06/06/17 PRESENTING COMPLAINT: Short of breath, tired. INTERVAL HISTORY: This patient admitted with multitude of symptoms, was somewhat confused at home. That actually has now actually has turned around. The patient is complaining of some difficulty swallowing. Tired, sitting up on a chair. REVIEW OF SYSTEMS: Done for constitutional, cardiovascular, GI, pulmonary; relevant findings as above. CURRENT MEDICATIONS: Reviewed. EXAMINATION: Temperature 97, pulse 91, respirations 16, blood pressure 140/82, pulse 100% on room. GENERAL APPEARANCE: Sitting up on a chair, more awake. EYES: Pupils equal. Conjunctivae normal. HEENT: External appearance of nose and ears normal. Oral cavity dry. NECK: JVD unable to assess. Mass not palpable. RESPIRATORY: Effort increased. Lungs, diminished breath sounds. Some crackles. CARDIOVASCULAR: First and second sounds, no edema. ABDOMEN: Soft, nontender. Liver and spleen not palpable. PSYCHIATRY: Awake, answering simple questions. INVESTIGATIONS: Troponin 0.052, 0.063. LDL 140. ASSESSMENT: 1. Possible pneumonia causing gram-negative organism, present on admission. 2. Acute delirium from above with some improvement. 3. Troponin leak probably from hemodynamic mismatch. No evidence of acute coronary syndrome. 4. Chronic congestive heart failure from diastolic dysfunction. Doubt acute exacerbation. 5. Coronary artery disease. 6. Essential hypertension. 7. Hypothyroidism. 8. Restless legs syndrome. 9. History of atrial fibrillation. 10.Moderate persistent asthma with some acute exacerbation. 11.Fibromyalgia. 12.Gastroesophageal reflux disease. 13.Rheumatoid arthritis. 14.Chronic kidney stage 3 from nephrosclerosis. 15.Chronic urinary stress incontinence. 16.Thoracic vertebral fracture. 17.Medical debility with frequent falls. 18.[place] dysfunction, uses a walker. 19.CODE STATUS: DNR. 20.Dysphagia. PLAN: Continue current medication and treatment plan. Patient on IV ceftriaxone. Will do will do a barium swallow. GI is also being consulted. Overall prognosis guarded. MMODL / IJN: [id number] /
--- NOTE | 2017-06-06 17:11 | P.CNNES ---
History of Present Illness Consult date: 06/06/17 Reason for Consult: Patient with generalized weakness and altered mental status. History of Present Illness: This patient is a 77-year-old right-handed white female who was brought into the emergency room yesterday with symptoms of altered mental status and generalized weakness. Patient apparently had been doing fairly well until recently. She is currently residing at [facility] in [place]. She was noted by nursing staff as being somewhat disoriented and confused. Her niece who provided the medical history today at bedside states that she did speak to her just prior to arriving on the day of admission. When she arrived and checked on her she noted that the patient seemed to be very confused and disoriented. They did contact her primary care physician who suggested she be taken by EMS to the emergency room for further evaluation. The patient apparently has been residing at the [facility] for the past few years. She has shown deterioration in the past month according to the niece in that she has had weight loss and increased generalized weakness. She has had poor appetite and has not been eating properly over the last month. According to the niece there is been at least 10 pound weight loss in the past 2 weeks. She also has a history of kyphosis of the spine and difficulty with breathing and questionable history of pulmonary fibrosis. She does have a rather poor respiratory status but has been evaluated by Dr. Reed and does seem to do well without the need for home oxygen. Due to the change in her mental status and decreased appetite and confusion she was brought by EMS to the emergency room for further evaluation. She was seen in the ER by Dr. Delcid. She was evaluated for possible stroke and her NIH stroke scale was noted to be 0. Also her symptoms seem to wax and wane and there was a nonfocal neurological examination in the emergency room as well. She was sent for a computed tomography scan of the brain which revealed evidence of a hypodensity in the right parietal lobe with concern for possible cortical stroke. The patient was evaluated by Dr. Delcid who reviewed her history and felt she was not a candidate for TPA given the above findings. As noted there was no clear onset of symptoms and her symptoms seem to wax and wane. Her NIH stroke scale was noted in the ER yesterday was 0. The patient was subsequently admitted to the hospital. Her niece was at bedside today and states that there has been improvement in her mental status compared to yesterday. 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 This finding suggests possibility of PFO. We have recommended the niece mention this to the steward/stewardess third Dr. Pradhan for further evaluation. The patient was sent for the CAT scan in the emergency room which did reveal evidence of a questionable right parietal infarct. We have recommended follow-up with a MRI of the brain provided the patient will be able to lay on the exam table to perform this study given her back trouble and kyphosis. We have explained this to the patient and her niece today at bedside. They would like to proceed and see if she will be able to complete an MRI for further evaluation. Patient denies any previous history of stroke. CAT scan of the brain did reveal evidence of cerebral atrophy and chronic white matter ischemic changes. There was also some degree of ventriculomegaly noted on this CAT scan. The patient is now admitted for further evaluation. She does have history of significant rheumatoid arthritis and fibromyalgia. This limits her ability to ambulate. She has been however showing decline in the last 1 month at the [facility] [facility] due to weakness and weight loss. We have discussed all of these findings in detail today with the niece and the patient at bedside. All of their questions were answered. We will continue further evaluation for possibility of stroke and will await a MRI study to be completed. We will await further recommendations from cardiology as noted above. The patient's overall condition at this time remains guarded. Neurology is now been consulted for further evaluation and recommendations. Review of Systems Constitutional: Denies chills, Denies fever Eyes: denies blurred vision, denies pain Ears, nose, mouth and throat: Denies headache, Denies sore throat Cardiovascular: Denies chest pain, Denies shortness of breath Respiratory: Denies cough Gastrointestinal: Denies abdominal pain, Denies diarrhea, Denies nausea, Denies vomiting Genitourinary: Denies dysuria, Denies hematuria Musculoskeletal: Reports frequent falls, Reports limitation of motion, Reports muscle weakness, Denies myalgias Integumentary: Denies pruritus, Denies rash Neurological: Reports confusion, Reports gait dysfunction, Reports motor disturbance, Denies numbness, Denies weakness Psychiatric: Denies anxiety, Denies depression Endocrine: Denies fatigue, Denies weight change 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, hialtal hernia, shingles>10 years ago, recent fractured thoracic vertebrae, History of Any Multi-Drug Resistant Organisms: None Reported Past Surgical History: Breast Surgery, Hernia Repair, Hysterectomy, Joint Replacement Additional Past Surgical History / Comment(s): ron total knee replacements ; right total shoulder surgery;lumpectomy left breast, deviated septum repari,jaw sx for overbite,DeQuervains release rt wrist, rt wrist tendon lenghtening,d&c, lt knee partial synovectomy 1983,ron carpal tunnel release/ulnar nerve, synovectomy w/partial resection ulnar styloid lt wrist,radioulnar jt,resection ulnar head tendon lt wrist,chondroplasty,lat tibial plateau.exc trapezium w/ ligament reconstruction,arthroplasty lt thumb, esophagus stretched 6 times Past Anesthesia/Blood Transfusion Reactions: Postoperative Nausea & Vomiting ( PONV) Additional Past Anesthesia/Blood Transfusion Reaction / Comment(s): past blood transfusion after knee sx- no reaction. Past Psychological History: Anxiety, Depression Smoking Status: Never smoker Past Alcohol Use History: None Reported Past Drug Use History: None Reported - Past Family History Mother Family Medical History: Cancer, CVA/TIA Additional Family Medical History / Comment(s): tia's and rectal cancer-lived to be 99 Father Additional Family Medical History / Comment(s): at age 59 from als Medications and Allergies Home Medications Medication Instructions Recorded Confirmed Type Levothyroxine Sodium [Synthroid] 50 mcg PO DAILY 11/06/13 06/05/17 History Multivitamin/Iron/Folic Acid 1 tab PO DAILY 11/06/13 06/05/17 History [Centrum Complete Multivit Tab] Spironolactone [Aldactone] 25 mg PO BID 11/06/13 06/05/17 History Calcium Carbonate [Calcium] 600 mg PO DAILY 09/24/15 06/05/17 History Furosemide [Lasix] 20 mg PO BID 09/24/15 06/05/17 History L.acidoph,Paracasei, B.lactis 1 cap PO DAILY 09/24/15 06/05/17 History [Probiotic] Albuterol Nebulized [Ventolin 2.5 mg INHALATION RT-Q4H PRN 06/05/17 06/05/17 History Nebulized] Amoxicillin 2,000 mg PO ONCE 06/05/17 06/05/17 History Baclofen [Lioresal] 10 mg PO BID 06/05/17 06/05/17 History Budesonide [Pulmicort] 0.5 mg INHALATION RT-BID 06/05/17 06/05/17 History Carboxymethyl/Gly/Poly80/Pf 1 dropper BOTH EYES DAILY PRN 06/05/17 06/05/17 History [Refresh Optive Kelvin-3 Drops] Carvedilol [Coreg] 25 mg PO BID 06/05/17 06/05/17 History Formoterol Fumarate [Perforomist] 20 mcg INHALATION RT-BID 06/05/17 06/05/17 History HYDROcodone/APAP 7.5-325MG [[place] 1 tab PO Q4-6H PRN 06/05/17 06/05/17 History 7.5-325] Montelukast [Singulair] 10 mg PO DAILY 06/05/17 06/05/17 History Pramipexole [Mirapex] 0.5 mg PO TID 06/05/17 06/05/17 History hydrALAZINE HCL [Apresoline] 100 mg PO TID 06/05/17 06/05/17 History oxyCODONE-APAP 5-325MG [Percocet 1 tab PO Q6HR PRN 06/05/17 06/05/17 History 5-325 mg] Allergies Allergy/AdvReac Type Severity Reaction Status Date / Time adhesive tape AdvReac Rash/Hives Verified 06/05/17 17:49 Calcium Channel Blocking AdvReac Unknown Verified 06/05/17 18:06 Agent Dilt diclofenac sodium AdvReac Rash/Hives Verified 06/05/17 17:49 [From Voltaren] lansoprazole [From Prevacid] AdvReac Diarrhea Verified 06/05/17 17:49 meclofenamate sodium AdvReac Rash/Hives Verified 06/05/17 17:49 [From Meclomen] minocycline [Minocycline] AdvReac Unknown Verified 06/05/17 17:49 NSAIDS (Non-Steroidal AdvReac Unknown Verified 06/05/17 17:49 Anti-Inflamma pregabalin [From Lyrica] AdvReac Swelling Verified 06/05/17 17:49 sertraline HCl [From Zoloft] AdvReac Diarrhea Verified 06/05/17 17:49 Sulfa (Sulfonamide AdvReac Rash/Hives Verified 06/05/17 17:49 Antibiotics) Physical Examination - Vital Signs Vital Signs: Vital Signs Temp Pulse Pulse Resp BP BP Pulse Ox 06/06/17 12:00 97 F L 91 16 145/82 100 06/06/17 10:38 97 F L 16 145/82 100 06/06/17 08:38 96.8 F L 69 16 121/61 97 06/06/17 08:00 96.8 F L 69 16 121/61 97 06/06/17 05:30 78 17 06/06/17 04:15 98.5 F 78 17 145/74 98 06/06/17 01:25 78 17 06/06/17 01:20 74 17 144/70 96 06/05/17 21:15 67 17 06/05/17 21:01 98.1 F 67 17 142/76 98 06/05/17 20:33 60 16 162/72 98 06/05/17 19:32 96.9 F L 78 18 137/70 99 06/05/17 18:00 69 20 145/76 96 06/05/17 17:43 82 22 170/85 93 L Intake and Output 06/06/17 06/06/17 06/06/17 06:59 14:59 22:59 Intake Total 1100 700 Balance 1100 700 Intake: Intake, IV Titration 1100 700 Amount Sodium Chloride 0.9% 1, 1100 700 000 ml @ 100 mls/hr IV . Q10H [facility] Rx#:[id number] Oral 0 Other: Voiding Method Diaper Diaper Incontinent Incontinent Weight 48.3 kg 48.3 kg Patient Weight 06/07/17 06:59 Weight 48.3 kg - Constitutional General appearance: average body habitus, cooperative - EENT EENT: PERRL, mucous membranes moist - Respiratory Respiratory: lungs clear, normal breath sounds - Cardiovascular Cardiovascular: regular rate, normal S1, normal S2 Extremities: no peripheral edema bilaterally - Gastrointestinal Gastrointestinal: normoactive bowel sounds - Integumentary Integumentary: normal - Neurologic Cranial nerve examination: PERRL, EOMI, VFF, V1/V2/V3 grossly intact, face symmetric, tongue midline, intact gag reflex, intact corneal reflex, normal palatal elevation Speech examination: intact Sensorimotor examination: intact Motor examination - right side: 3/5: biceps, triceps, wrist flexion, wrist extension, milk vendor, hip flexors, knee extensors, dorsiflexion, toe extension (EHL) , plantarflexion Motor examination - left side: 3/5: biceps, triceps, wrist flexion, wrist extension, milk vendor, hip flexors, knee extensors, dorsiflexion, toe extension (EHL) , plantarflexion Detailed sensory examination: intact Reflex and gait examination: intact Reflexes: 1+: ankle, bicep, knee, tricep - Musculoskeletal Musculoskeletal: no pain - Psychiatric Psychiatric: mood/affect appropriate, cooperative Results - Laboratory Findings CBC and BMP: 06/05/17 18:20 06/05/17 18:20 Abnormal Lab Findings: Abnormal Labs 06/05/17 06/05/17 06/05/17 18:06 18:20 18:20 RDW 17.0 H Neutrophils # 7.9 H Lymphocytes # 0.7 L VBG pH VBG HCO3 Chloride BUN Creatinine Glucose POC Glucose (mg/dL) 118 H ALT Alkaline Phosphatase CK-MB (CK-2) 6.2 H* Troponin I 0.052 H* Total Protein Albumin Cholesterol LDL Cholesterol, Calc Urine Ketones 06/05/17 06/05/17 06/05/17 18:20 18:20 19:30 RDW Neutrophils # Lymphocytes # VBG pH 7.43 H VBG HCO3 30 H Chloride 97 L BUN 35 H Creatinine 1.30 H Glucose 119 H POC Glucose (mg/dL) ALT 55 H Alkaline Phosphatase 146 H CK-MB (CK-2) Troponin I Total Protein 6.2 L Albumin 3.4 L Cholesterol LDL Cholesterol, Calc Urine Ketones Trace H 06/05/17 06/06/17 06/06/17 23:30 06:14 06:14 RDW Neutrophils # Lymphocytes # VBG pH VBG HCO3 Chloride BUN Creatinine Glucose POC Glucose (mg/dL) ALT Alkaline Phosphatase CK-MB (CK-2) Troponin I 0.063 H* 0.082 H* Total Protein Albumin Cholesterol 213 H LDL Cholesterol, Calc 140 H Urine Ketones Assessment and Plan (1) Acute encephalopathy Current Visit: Yes Status: Acute Code(s): G93.40 - ENCEPHALOPATHY, UNSPECIFIED SNOMED Code(s): 91201201 (2) CVA (cerebral vascular accident) Current Visit: Yes Status: Acute Code(s): I63.9 - CEREBRAL INFARCTION, UNSPECIFIED SNOMED Code(s): 348624013 (3) Elevated troponin Current Visit: Yes Status: Acute Code(s): R74.8 - ABNORMAL LEVELS OF OTHER SERUM ENZYMES SNOMED Code(s): 813476390 (4) Weight loss Current Visit: Yes Status: Acute Code(s): R63.4 - ABNORMAL WEIGHT LOSS SNOMED Code(s): 09777409 Plan: This patient is 77-year-old female who was admitted to hospital yesterday with symptoms of generalized weakness and increased confusion with altered mental status. Patient's history was obtained from her niece who is at bedside today. Apparently she was visiting from out of town and noted yesterday that the patient showed increasing confusion with altered mental status. She was also having difficulty with generalized weakness. According to the niece over the past 1 month she has lost significant weight and has not been eating well at all. She is residing at [facility] and has been showing deterioration in her general medical health over the past month. She has had multiple falls at the facility. 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 Cardiology has been consulted and we will await their further evaluation and recommendations. Patient denies any previous history of stroke. She was brought into the emergency room and underwent a computed tomography scan of the brain which revealed question of a right parietal lobe infarct. We have recommended further evaluation with MRI of the brain which she'll be scheduled for the patient as soon as possible. It is unclear whether she'll be able to complete the MRI due to her kyphosis of spine and difficulty with laying flat. We will attempt to get the MRI done as soon as possible for further assessment. Case was discussed at length today with the patient's niece who is at bedside. All of her questions were answered. She is aware of our clinical assessment and recommendations. All of her questions were answered to her satisfaction. We will continue close monitoring of this patient during this admission. As noted we will await further recommendations from cardiology. Depending on the MRI results further recommendations will be given. Her overall prognosis at this time remains guarded. Time with Patient: Greater than 30
[2017-06-06] MEDS: cefTRIAXone IN SWFI 1,000 MG/10 ML SYRINGE IVP SCH (17:27)
[2017-06-06] MEDS: CARVEDILOL 12.5 MG TAB PO SCH (17:27)
[2017-06-06] MEDS: BUDESONIDE 0.5 MG/2 ML NEBU INHALATION SCH (20:10)
[2017-06-06] MEDS: FORMOTEROL FUMARATE 20 MCG/2 ML NEBU INHALATION SCH (20:10)
[2017-06-06] MEDS: ALBUTEROL NEBULIZED 2.5 MG/3 ML INHALATION PRN (20:10)
[2017-06-06] MEDS ORDERED: SPIRONOLACTONE 25 MG TAB PO SCH (21:00)
[2017-06-06] MEDS: BACLOFEN 10 MG TAB PO SCH (21:44)
[2017-06-07] MEDS: CARVEDILOL 12.5 MG TAB PO SCH ×3 (06:07→17:51)
[2017-06-07] MEDS: LEVOTHYROXINE 50 MCG TAB PO SCH ×2 (06:07→06:09)
[2017-06-07] MEDS: FORMOTEROL FUMARATE 20 MCG/2 ML NEBU INHALATION SCH ×2 (08:43→20:46)
[2017-06-07] MEDS: BUDESONIDE 0.5 MG/2 ML NEBU INHALATION SCH ×2 (08:43→20:36)
[2017-06-07] MEDS: ALBUTEROL NEBULIZED 2.5 MG/3 ML INHALATION PRN ×3 (08:43→20:36)
[2017-06-07] MEDS: cefTRIAXone IN SWFI 1,000 MG/10 ML SYRINGE IVP SCH (09:00)
--- NOTE | 2017-06-07 11:31 | P.CONS ---
History of Present Illness - Reason for Consult Consult date: 06/07/17 Dysphagia Requesting physician: Rodrigue Sibley - History of Present Illness 77-year-old male past medical history atrial fibrillation, GERD, esophageal stricture disease, hypertension, rheumatoid arthritis presented with altered mental status and mild elevation of troponin 0.05-0.08. Patient has been experiencing difficulty swallowing. Reports a "stuck" sensation of food in the lower esophageal region. Denies abdominal aphasia. Denies abdominal pain. Barium swallow revealed severe kyphoscoliosis with presbyesophagus and mild luminal narrowing at the GE junction. ALLERGIC to PPI therapy. Denies hematemesis hematochezia melena. Review of medical records EGD October 2013 performed with findings of benign appearing distal esophageal stricture not impeding the advancement of endoscope dilated up to 18 mm. Review of Systems Constitutional: Denies fever, chills, sweats, weight gain, or loss. HEENT: Negative for migraines, blurred vision or loss, earaches, drainage, tinnitus, oral mucosal lesions, dysphagia, or odynophagia. CARDIAC: Atrial fibrillation. Hypertension. Negative for chest pain, arrhythmias, or palpitation. RESPIRATORY: Asthma. History of pneumonia. Negative for shortness of breath, hemoptysis, cough, or sputum production. GI: See HPI for pertinent findings. : Negative for hematuria, urgency, frequency, polyuria, or dysuria. GYNc: Denies possibility of . Negative vaginal discharge. MUSCULOSKELETAL: Negative for muscle aches, swelling, arthritis, and arthralgias. NEUROLOGIC: Negative for stroke or TIA. ENDOCRINE: Rheumatoid arthritis. History of hypothyroidism.. SKIN: Negative for rash or itching. PSYCHIATRIC: History of anxiety. History of depression. 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, hialtal hernia, shingles>10 years ago, recent fractured thoracic vertebrae, History of Any Multi-Drug Resistant Organisms: None Reported Past Surgical History: Breast Surgery, Hernia Repair, Hysterectomy, Joint Replacement Additional Past Surgical History / Comment(s): ron total knee replacements ; right total shoulder surgery;lumpectomy left breast, deviated septum repari,jaw sx for overbite,DeQuervains release rt wrist, rt wrist tendon lenghtening,d&c, lt knee partial synovectomy 1983,ron carpal tunnel release/ulnar nerve, synovectomy w/partial resection ulnar styloid lt wrist,radioulnar jt,resection ulnar head tendon lt wrist,chondroplasty,lat tibial plateau.exc trapezium w/ ligament reconstruction,arthroplasty lt thumb, esophagus stretched 6 times Past Anesthesia/Blood Transfusion Reactions: Postoperative Nausea & Vomiting ( PONV) Additional Past Anesthesia/Blood Transfusion Reaction / Comm: past blood transfusion after knee sx- no reaction. Past Psychological History: Anxiety, Depression Smoking Status: Never smoker Past Alcohol Use History: None Reported Past Drug Use History: None Reported - Past Family History Mother Family Medical History: Cancer, CVA/TIA Additional Family Medical History / Comment(s): tia's and rectal cancer-lived to be 99 Father Additional Family Medical History / Comment(s): at age 59 from als Medications and Allergies Home Medications Medication Instructions Recorded Confirmed Type Levothyroxine Sodium [Synthroid] 50 mcg PO DAILY 11/06/13 06/05/17 History Multivitamin/Iron/Folic Acid 1 tab PO DAILY 11/06/13 06/05/17 History [Centrum Complete Multivit Tab] Spironolactone [Aldactone] 25 mg PO BID 11/06/13 06/05/17 History Calcium Carbonate [Calcium] 600 mg PO DAILY 09/24/15 06/05/17 History Furosemide [Lasix] 20 mg PO BID 09/24/15 06/05/17 History L.acidoph,Paracasei, B.lactis 1 cap PO DAILY 09/24/15 06/05/17 History [Probiotic] Albuterol Nebulized [Ventolin 2.5 mg INHALATION RT-Q4H PRN 06/05/17 06/05/17 History Nebulized] Amoxicillin 2,000 mg PO ONCE 06/05/17 06/05/17 History Baclofen [Lioresal] 10 mg PO BID 06/05/17 06/05/17 History Budesonide [Pulmicort] 0.5 mg INHALATION RT-BID 06/05/17 06/05/17 History Carboxymethyl/Gly/Poly80/Pf 1 dropper BOTH EYES DAILY PRN 06/05/17 06/05/17 History [Refresh Optive Kelvin-3 Drops] Carvedilol [Coreg] 25 mg PO BID 06/05/17 06/05/17 History Formoterol Fumarate [Perforomist] 20 mcg INHALATION RT-BID 06/05/17 06/05/17 History HYDROcodone/APAP 7.5-325MG [[place] 1 tab PO Q4-6H PRN 06/05/17 06/05/17 History 7.5-325] Montelukast [Singulair] 10 mg PO DAILY 06/05/17 06/05/17 History Pramipexole [Mirapex] 0.5 mg PO TID 06/05/17 06/05/17 History hydrALAZINE HCL [Apresoline] 100 mg PO TID 06/05/17 06/05/17 History oxyCODONE-APAP 5-325MG [Percocet 1 tab PO Q6HR PRN 06/05/17 06/05/17 History 5-325 mg] Allergies Allergy/AdvReac Type Severity Reaction Status Date / Time adhesive tape AdvReac Rash/Hives Verified 06/05/17 17:49 Calcium Channel Blocking AdvReac Unknown Verified 06/05/17 18:06 Agent Dilt diclofenac sodium AdvReac Rash/Hives Verified 06/05/17 17:49 [From Voltaren] lansoprazole [From Prevacid] AdvReac Diarrhea Verified 06/05/17 17:49 meclofenamate sodium AdvReac Rash/Hives Verified 06/05/17 17:49 [From Meclomen] minocycline [Minocycline] AdvReac Unknown Verified 06/05/17 17:49 NSAIDS (Non-Steroidal AdvReac Unknown Verified 06/05/17 17:49 Anti-Inflamma pregabalin [From Lyrica] AdvReac Swelling Verified 06/05/17 17:49 sertraline HCl [From Zoloft] AdvReac Diarrhea Verified 06/05/17 17:49 Sulfa (Sulfonamide AdvReac Rash/Hives Verified 06/05/17 17:49 Antibiotics) Physical Exam Vitals: Vital Signs Temp Pulse Pulse Resp BP Pulse Ox 06/07/17 09:10 84 06/07/17 08:58 84 06/07/17 08:57 84 06/07/17 08:43 80 06/07/17 04:45 97.8 F 82 18 159/77 95 06/07/17 04:10 82 18 06/07/17 00:20 97.9 F 79 18 149/81 94 L 06/06/17 20:36 96 06/06/17 20:25 92 86 16 06/06/17 20:20 97.8 F 79 17 113/63 98 06/06/17 20:16 88 06/06/17 16:38 97.1 F L 86 16 129/66 97 06/06/17 16:00 97.1 F L 86 16 129/66 97 06/06/17 12:00 97 F L 91 16 145/82 100 Intake and Output 06/06/17 06/07/17 06/07/17 22:59 06:59 14:59 Output Total 0 0 Balance 0 0 Output: Stool 0 0 Other: Voiding Method Diaper Diaper Incontinent Incontinent # Voids 1 2 1 Weight 48.5 kg General appearance: The patient is alert, oriented, in no acute distress. Hard of hearing. HET: Head is normocephalic and atraumatic. Pupils are equal and reactive. Oropharynx is clear without lesions. Neck: Supple without lymphadenopathy. Trachea midline. Kyphosis present. Heart: S1 S2. Regular rate and rhythm. Lungs: No crackles or wheezes are heard. Abdomen: Soft, nontender, nondistended with bowel sounds. No peritoneal signs. No palpable organomegaly or masses. Extremities: Normal skin color and turgor. No cyanosis, rash, ulceration, clubbing, or edema. Radial and pedal pulses are 2/4 bilaterally. Neurological: No focal deficits. Strength and sensation are grossly intact. Results CBC & Chem 7: 06/05/17 18:20 06/05/17 18:20 Comments: Modified barium swallow report reviewed by Dr. Du Assessment and Plan (1) Dysphagia Narrative/Plan: Suspect secondary to a combination of presbyesophagus and distal esophageal stricture disease exacerbated by kyphoscoliosis. Current Visit: Yes Status: Acute Code(s): R13.10 - DYSPHAGIA, UNSPECIFIED SNOMED Code(s): 23035991 (2) Esophageal stricture Current Visit: Yes Status: Acute Code(s): K22.2 - ESOPHAGEAL OBSTRUCTION SNOMED Code(s): 41339338 (3) Kyphoscoliosis Current Visit: Yes Status: Acute Code(s): M41.9 - SCOLIOSIS, UNSPECIFIED SNOMED Code(s): 123948041 (4) Presbyesophagus Current Visit: Yes Status: Acute Code(s): K22.8 - OTHER SPECIFIED DISEASES OF ESOPHAGUS SNOMED Code(s): 525852400 (5) Altered mental status Current Visit: Yes Status: Acute Code(s): R41.82 - ALTERED MENTAL STATUS, UNSPECIFIED SNOMED Code(s): 577465164 Plan: 1. Diet per speech recommendations date and nothing by mouth after midnight. 2. EGD evaluation tomorrow. 3. Pepcid 20 mg IV twice daily patient has a history of ALLERGIC reaction to PPI therapy. The textile designer has discussed the risks, benefits and alternative therapies for the above-mentioned procedure and for both sedation/analgesia as well as necessary blood product administration, if indicated, as they pertain to this patient. The patient has indicated understanding and acceptance of the risks and procedures discussed. Thank you for this kind referral and the opportunity to participate in the care of your patient. This consultation was discussed with Dr. Du. The impression and plan of care have been directed as dictated.
--- NOTE | 2017-06-07 11:46 | FL ---
ESOPHOGRAM. HISTORY: Dysphagia Pt given 3oz EZ Paque barium. 1.07min fluoro time. . 14 images submitted. Esophagram was performed per the single contrast technique lying on the fluoroscopy table. Examinatio n is quite limited given the patient's marked kyphosis. There is evidence of tertiary contractions compatible presbyesophagus. There is no evidence for filling defect, mass or diverticulum. Mild luminal narrowing is seen at the gastroesophageal junction. No hiatal hernia seen. Cervical esophagram evaluation could not be performed given the marked kyphosis.. IMPRESSION: 1. Limited study given patient's marked cervical thoracic kyphosis. 2. Presbyesophagus. 3. Mild luminal narrowing at the gastroesophageal junction.
--- NOTE | 2017-06-07 11:47 | ECHOF ---
Referral Reason:abn trop MEASUREMENTS -------- HEIGHT: 149.9 cm WEIGHT: 48.1 kg BP: 145/82 RVIDd: 2.4 cm (< 3.3) IVSd: 1.3 cm (0.6 - 1.1) LVIDd: 4.1 cm (3.9 - 5.3) LVPWd: 1.3 cm (0.6 - 1.1) IVSs: 1.5 cm LVIDs: 2.5 cm LVPWs: 1.7 cm LA Diam: 3.6 cm (2.7 - 3.8) Ao Diam: 3.0 cm (2.0 - 3.7) AV Cusp: 1.5 cm (1.5 - 2.6) MV EXCURSION: 13.666 mm (> 18.000) MV EF SLOPE: 112 mm/s (70 - 150) EPSS: 0.5 cm MV E John: 0.91 m/s MV DecT: 289 ms MV A John: 1.34 m/s MV E/A Ratio: 0.68 FINDINGS -------- Sinus rhythm. This was a technically adequate study. The left ventricular size is normal. There is moderate concentric left ventricular hypertrophy. O verall left ventricular systolic function is normal with, an EF between 60 - 65 %. The right ventricle is normal in size and function. The left atrium is normal in size. The right atrium is normal in size. There is mild aortic valve sclerosis. Mild mitral annular calcification present. The tricuspid valve appears structurally normal. Trace/mild (physiologic) pulmonic regurgitation. The aortic root size is normal. IVC Not well visulized. There is no pericardial effusion. CONCLUSIONS -------- 1. Sinus rhythm. 2. This was a technically adequate study. 3. The left ventricular size is normal. 4. There is moderate concentric left ventricular hypertrophy. 5. Overall left ventricular systolic function is normal with, an EF between 60 - 65 %. 6. The right ventricle is normal in size and function. 7. The left atrium is normal in size. 8. The right atrium is normal in size. 9. There is mild aortic valve sclerosis. 10. Mild mitral annular calcification present. 11. The tricuspid valve appears structurally normal. 12. Trace/mild (physiologic) pulmonic regurgitation. 13. The aortic root size is normal. 14. IVC Not well visulized. 15. There is no pericardial effusion. HAND CANDLE MOLDER: Sudha Woods RDCS
--- NOTE | 2017-06-07 12:17 | P.PN ---
Subjective Progress Note Date: 06/07/17 Principal diagnosis: Altered mental status. This is a very pleasant 77-year-old female patient who follows with Dr. Donis as her primary care physician. She has a history of atrial fibrillation, fibromyalgia, gastroesophageal reflux disease, hypertension, renal disease, rheumatoid arthritis, hypothyroidism. She presented here to the emergency room yesterday with altered mental status. She was complaining of intermittent periods of confusion. She was admitted for CVA, elevated troponin and acute kidney injury. Her chest x-ray shows pulmonary fibrotic changes and mild pleural reaction of the right lung base. No overt congestive heart failure. No pneumonia. Computed tomography scan of the brain reveals cerebral atrophy but no acute intracranial abnormalities. There is more noticeable white matter hypodensity in the right parietal lobe and a small area of cortical infarct possible. She is seen today in consultation on the selective care unit. She is awake and alert in no acute distress. She is oriented 3. She denies any headache dizziness or lightheadedness. No focal deficits. No leukocytosis. Hemoglobin 12.9. Creatinine 1.30. Troponin 0.052, 0.063, 0.082. Influenza screen negative. Urine is clear. She has been afebrile. Hemodynamically stable. No tachycardia. No tachypnea. Maintaining good O2 sat saturations in the high 90s on room air. The patient is seen again today 06/07/2017 in follow-up on the selective care unit. She is awake and alert in no acute distress. She denies any worsening shortness of breath, cough or congestion. She is maintaining good O2 saturations in the 90s on 3 L/m per nasal cannula. She's been afebrile. Hemodynamically stable. She's been nothing by mouth for a barium swallow today which revealed a limited study based on the patient's marketed cervical thoracic kyphosis process, presbyesophagus, mild luminal narrowing at the GE junction. GI services have been consulted. Objective - Vital Signs Vital signs: Vital Signs Temp 97.2 F L 06/07/17 08:00 Pulse 84 06/07/17 09:10 Resp 18 06/07/17 08:00 BP 139/63 06/07/17 08:00 Pulse Ox 92 L 06/07/17 08:00 Intake & Output 06/06/17 06/07/17 06/07/17 18:59 06:59 18:59 Intake Total 700 Output Total 0 0 Balance 700 0 Weight 48.3 kg 48.5 kg Intake: Intake, IV Titration 700 Amount Sodium Chloride 0.9% 1, 700 000 ml @ 100 mls/hr IV . Q10H [facility] Rx#:[id number] Output: Stool 0 0 Other: Voiding Method Diaper Diaper Incontinent Incontinent # Voids 1 2 1 - Exam GENERAL EXAM: Frail, cachectic. Alert, comfortable in no apparent distress. HEAD: Normocephalic. EYES: Normal reaction of pupils, equal size. NOSE: Clear with pink turbinates. THROAT: No erythema or exudates. NECK: No masses, no JVD. CHEST: No chest wall deformity. LUNGS: Equal air entry with no crackles, wheeze, rhonchi or dullness. CVS: S1 and S2 normal with no audible murmur, regular rhythm. ABDOMEN: No hepatosplenomegaly, normal bowel sounds, no guarding or rigidity. SPINE: Severe kyphoscoliosis. SKIN: No rashes CENTRAL NERVOUS SYSTEM: No focal deficits, tone is normal in all 4 extremities. EXTREMITIES: Evidence of rheumatoid arthritis. There is no peripheral edema. No clubbing, no cyanosis. Peripheral pulses are intact. - Labs CBC & Chem 7: 06/05/17 18:20 06/05/17 18:20 Assessment and Plan Assessment: Impression: #1 Altered mental status of unclear etiology. CT scan of the brain revealed no acute intracranial abnormality. There is more noticeable white matter hypodensity in the right parietal lobe and some small area of cortical infarct possible. #2 Troponin leaked out acute coronary syndrome. #3 History of atrial fibrillation. #4 Fibromyalgia. #5 Rheumatoid arthritis. #6 Hypothyroidism. #7 Hypertension. #8 Acute on chronic renal failure. #9 Dysphagia. Barium swallow revealed a limited study based on her severe kyphoscoliosis. There was presbyesophagus and mild luminal narrowing at the GE junction. Plan: The patient was seen and evaluated by Dr. Goel. Barium swallow results were noted. GI services has been consulted. We'll continue to follow and make further recommendations based on her clinical status. I, the cosigning physician, performed a history & physical examination of the patient. Lungs sounds are clear. Maintaining good O2 saturations in the 90s on 2 L/m per nasal cannula. I discussed the assessment and plan of care with my nurse practitioner, Lilo Kinsey. I attest to the above on sedation as dictated by her.
--- NOTE | 2017-06-07 12:30 | P.PN ---
Subjective Progress Note Date: 06/07/17 This is a 77-year-old female with history of paroxysmal atrial fibrillation, fibromyalgia, hypertension, rheumatoid arthritis, renal disease, hypothyroidism. She originally presented to the hospital with confusion and mental status changes. Patient was admitted to rule out CVA, cardiology consultation was requested because of abnormal troponin values. Chest x-ray reveals pulmonary fibrotic changes and mild pleural reaction of the right lung base. No overt congestive heart failure. No pneumonia. Computed tomography scan of the brain revealed cerebral atrophy but no acute intracranial abnormalities. Patient was seen and examined sitting up in a chair at bedside today. Responding only minimally verbally. But she denied any chest discomfort , no headache, no lightheadedness or dizziness. Hemoglobin 12.9, creatinine 1.3 , troponins 0.05, 0.06, 0.08. Influenza negative. Urine was clear. She has been afebrile and hemodynamically stable. Maintaining in the 90s on room air. Her EKG showed normal sinus rhythm with lateral ST-T wave changes. 06/07/2017 Patient seen and examined this morning, much more alert and interactive today. Echocardiogram with Doppler study was performed which revealed a normal left ventricular systolic function. Objective - Vital Signs Vital signs: Vital Signs Temp 97.2 F L 06/07/17 08:00 Pulse 84 06/07/17 09:10 Resp 18 06/07/17 08:00 BP 139/63 06/07/17 08:00 Pulse Ox 92 L 06/07/17 08:00 Intake & Output 06/06/17 06/07/17 06/07/17 18:59 06:59 18:59 Intake Total 700 Output Total 0 0 Balance 700 0 Weight 48.3 kg 48.5 kg Intake: Intake, IV Titration 700 Amount Sodium Chloride 0.9% 1, 700 000 ml @ 100 mls/hr IV . Q10H [facility] Rx#:[id number] Output: Stool 0 0 Other: Voiding Method Diaper Diaper Incontinent Incontinent # Voids 1 2 2 # Bowel Movements 0 - Exam PHYSICAL EXAMINATION: HEENT: Head is atraumatic, normocephalic. Pupils equal, round. Neck is supple. There is no elevated jugular venous pressure. HEART EXAMINATION: Heart S1, S2 normal. No murmur or gallop heard. CHEST EXAMINATION: Lungs are clear to auscultation and precussion. No chest wall tenderness is noted on palpation or with deep breathing. ABDOMEN: Soft, nontender. Bowel sounds are heard. No organomegaly noted]. EXTREMITIES:[ 2+ peripheral pulses with no evidence of peripheral edema and no calf tenderness noted]. NEUROLOGIC [patient is awake, alert and oriented -1.] - Labs CBC & Chem 7: 06/05/17 18:20 06/05/17 18:20 Assessment and Plan Plan: Assessment and plan #1 Altered mental status of unclear etiology. CT scan of the brain revealed no acute intracranial abnormality. There is more noticeable white matter hypodensity in the right parietal lobe and some small area of cortical infarct possible. #2 Troponin abnormality, not consistent with acute coronary syndrome likely secondary to oxygen supply and demand mismatch #3 History of atrial fibrillation. #4 Fibromyalgia. #5 Rheumatoid arthritis. #6 Hypothyroidism. #7 Hypertension. #8 Acute on chronic renal failure. #9 Dysphagia. Plan Cardiac gram with Doppler study was performed which revealed a normal left ventricular systolic function. From cardiology's perspective, we will follow this patient with you now on an as-needed basis only, please don't hesitate to call with any questions. DNP note has been reviewed, I agree with a documented findings and plan of care. Patient was seen and examined.
--- NOTE | 2017-06-07 16:11 | P.PN ---
Subjective Progress Note Date: 06/07/17 This patient is a 77-year-old female who was admitted to hospital yesterday with increasing confusion and generalized weakness. She initially underwent a computed tomography scan of the brain which revealed a questionable right parietal lobe infarct. She was scheduled for MRI of the brain however this was canceled by the attending physician. We would recommend a follow-up computed tomography scan of the brain to be done for comparison. The patient is doing better today. She is more awake and alert. She was able to work with physical therapy and walk in the hallway. She was seen by gastroenterology due to her dysphagia and she has evidence of a presbyesophagus and distal esophageal stricture exacerbated by her kyphoscoliosis. She is scheduled to undergo EGD testing tomorrow. Patient otherwise seems to be doing better and is more cognitively awake and alert today. She is following simple questions. We will continue close neurological follow-up for the patient during this admission. Objective - Vital Signs Vital signs: Vital Signs Temp 97.0 F L 06/07/17 12:00 Pulse 84 06/07/17 12:51 Resp 18 06/07/17 12:00 BP 136/72 06/07/17 12:00 Pulse Ox 94 L 06/07/17 12:00 Intake & Output 06/06/17 06/07/17 06/07/17 18:59 06:59 18:59 Intake Total 700 Output Total 0 0 Balance 700 0 Weight 48.3 kg 48.5 kg Intake: Intake, IV Titration 700 Amount Sodium Chloride 0.9% 1, 700 000 ml @ 100 mls/hr IV . Q10H [facility] Rx#:[id number] Output: Stool 0 0 Other: Voiding Method Diaper Diaper Incontinent Incontinent # Voids 1 2 1 # Bowel Movements 0 - Exam Physical examination: PHYSICAL EXAMINATION: Patient is resting comfortably in bed. VITAL SIGNS: Blood pressure is [136/72]. Heart rate is [76]. Respiration is [18] . Temperature is [97.0]. HEENT: Head is atraumatic, neck is supple, there were no carotid bruits. CHEST: Lungs are clear to auscultation and percussion. CARDIAC: S1, S2 normal rate and rhythm. There is no murmur. ABDOMEN: Soft and nontender. Bowel sounds are present. EXTREMITIES: There is no pedal edema. Peripheral pulses are present. Neurological examination: Patient is sitting up in chair next to her bed. She is more awake and alert today. She is alert and oriented 3. Speech is fluent with no evidence of any aphasia or dysarthria. Her memory and intellectual functions slightly impaired. Cranial nerve examination: Cranial nerves II through XII grossly intact. Motor examination: There is no focal weakness on examination. Deep tendon reflexes: DTRs are 1+ and symmetric. Plantar responses flexor bilaterally. - Labs CBC & Chem 7: 06/05/17 18:20 06/05/17 18:20 Assessment and Plan (1) Acute encephalopathy Current Visit: Yes Status: Acute Code(s): G93.40 - ENCEPHALOPATHY, UNSPECIFIED SNOMED Code(s): 09967014 (2) CVA (cerebral vascular accident) Current Visit: Yes Status: Acute Code(s): I63.9 - CEREBRAL INFARCTION, UNSPECIFIED SNOMED Code(s): 657554272 (3) Elevated troponin Current Visit: Yes Status: Acute Code(s): R74.8 - ABNORMAL LEVELS OF OTHER SERUM ENZYMES SNOMED Code(s): 913218543 (4) Weight loss Current Visit: Yes Status: Acute Code(s): R63.4 - ABNORMAL WEIGHT LOSS SNOMED Code(s): 65684267 Plan: This patient is a 77-year-old female being evaluated for weakness and possible TIA versus stroke. Patient underwent initial computed tomography scan of the brain which revealed a questionable area of right parietal lobe infarct. MRI of the brain was canceled today by primary attending physician. We are recommending a follow-up computed tomography scan of the brain to be done today for comparison. Patient is being evaluated for dysphagia. She has severe kyphoscoliosis and barium swallow study is as noted above. She is scheduled to undergo EGD procedure tomorrow for further evaluation. We will await further recommendations from gastroenterology. Her overall prognosis at this time remains guarded. Would continue with aggressive physical therapy assessment and increase activity as she tolerates. Overall prognosis at this time remains guarded.
[2017-06-07] MEDS: FUROSEMIDE 20 MG TAB PO SCH ×2 (16:30→17:49)
[2017-06-07] MEDS: hydrALAZINE HCL 50 MG TAB PO SCH ×3 (16:30→21:23)
[2017-06-07] MEDS: MONTELUKAST 10 MG TAB PO SCH (16:31)
[2017-06-07] MEDS: BACLOFEN 10 MG TAB PO SCH ×2 (16:31→21:23)
[2017-06-07] MEDS: SPIRONOLACTONE 25 MG TAB PO SCH (16:32)
[2017-06-07] MEDS: FAMOTIDINE 20 MG/2 ML VIAL IV SCH (16:32)
[2017-06-07] MEDS: PRAMIPEXOLE 0.5 MG TAB PO SCH ×3 (16:33→21:23)
[2017-06-07] MEDS: ASPIRIN 325 MG TAB PO SCH (16:41)
--- NOTE | 2017-06-07 19:59 | CT ---
EXAMINATION TYPE: CT brain wo con DATE OF EXAM: 06/07/2017 COMPARISON: 06/05/2017 HISTORY: Weakness. follow up scan CT DLP: 1092.8 mGycm Automated exposure control for dose reduction was used. FINDINGS: There is some cerebral cortical atrophy. There is no mass effect nor midline shift. There is no sign of intracranial hemorrhage. There is moderate hypodensity in the periventricular white matter. This i s more noticeable in the parietal lobes. The calvarium is intact. IMPRESSION: CHRONIC WHITE MATTER CHANGES. CEREBRAL ATROPHY. NO ACUTE ABNORMALITY. NO CHANGE COMPARED TO LAST EXAM .
--- NOTE | 2017-06-07 20:31 | PN ---
PROGRESS NOTE DATE OF SERVICE: 06/07/2017 PRESENTING COMPLAINT: Tired. INTERVAL HISTORY: Patient was admitted with multiple symptoms, including acute confusion felt to be delirium. The patient is not felt to have a stroke. Patient is also being treated for possible pneumonia. Patient is having trouble swallowing. Barium swallow showed presbyesophagus. GI is planning to do further workup. REVIEW OF SYSTEMS: Done for constitutional, cardiovascular, GI, pulmonary, lymphatics; relevant findings as above. CURRENT MEDICATIONS: Reviewed. They include IV ceftriaxone. PHYSICAL EXAMINATION: Temperature 97, pulse 75, respiration 18, blood pressure 136/72, pulse ox 94% on 3 L. GENERAL APPEARANCE: Sitting up on a chair, tired-appearing. EYES: Pupils equal. Conjunctivae normal. HEENT: External appearance of nose and ears normal. Oral cavity dry. NECK: JVD unable to assess. Mass not palpable. RESPIRATORY: LUNGS: Decreased breath sounds. CARDIOVASCULAR: First and second sounds normal. No edema. ABDOMEN: Soft, nontender. Liver and spleen not palpable. PSYCHIATRY: Awake. Answering simple questions. INVESTIGATIONS: LDL 140. Barium swallow presbyesophagus. ASSESSMENT: 1. Possible pneumonia causing Gram-negative organism, present on admission. Patient is on IV ceftriaxone. 2. Acute delirium from above with improvement. 3. Troponin leak from hemodynamic mismatch. No evidence of acute coronary syndrome. 4. Chronic congestive heart failure from diastolic dysfunction. 5. Coronary artery disease. 6. Essential hypertension. 7. Hypothyroidism. 8. Restless legs syndrome. 9. History of atrial fibrillation. 10.Moderate persistent asthma with some acute exacerbation. 11.Fibromyalgia. 12.Gastroesophageal reflux disease. 13.Rheumatoid arthritis. 14.Chronic kidney disease, stage III, from nephrosclerosis. 15.Chronic urinary stress incontinence. 16.Chronic thoracic vertebra fracture. 17.Medical debility with frequent falls. 18.Gait dysfunction. Uses a walker. 19.CODE STATUS DNR. 20.Dysphagia from presbyesophagus. 21.Hypertensive heart disease. PLAN: Continue current medication and treatment plan. GI is planning to do an EGD tomorrow. Repeat CT scan of the brain has been done by Neurology to see if there is a stroke component involved. Patient did have a 2-D echocardiogram that showed EF of 60% to 65%. Follow up with Pulmonary, Neurology and Cardiology. MMODL / IJN: [id number] /
[2017-06-08] MEDS: LEVOTHYROXINE 50 MCG TAB PO SCH (06:03)
[2017-06-08] MEDS: CARVEDILOL 12.5 MG TAB PO SCH ×2 (06:03→17:54)
[2017-06-08] MEDS: ALBUTEROL NEBULIZED 2.5 MG/3 ML INHALATION PRN ×4 (08:03→20:00)
[2017-06-08] MEDS: BUDESONIDE 0.5 MG/2 ML NEBU INHALATION SCH ×2 (08:03→20:00)
[2017-06-08] MEDS: FORMOTEROL FUMARATE 20 MCG/2 ML NEBU INHALATION SCH ×2 (08:03→20:00)
--- NOTE | 2017-06-08 11:57 | P.PN ---
Subjective Progress Note Date: 06/08/17 Principal diagnosis: Altered mental status. This is a very pleasant 77-year-old female patient who follows with Dr. Donis as her primary care physician. She has a history of atrial fibrillation, fibromyalgia, gastroesophageal reflux disease, hypertension, renal disease, rheumatoid arthritis, hypothyroidism. She presented here to the emergency room yesterday with altered mental status. She was complaining of intermittent periods of confusion. She was admitted for CVA, elevated troponin and acute kidney injury. Her chest x-ray shows pulmonary fibrotic changes and mild pleural reaction of the right lung base. No overt congestive heart failure. No pneumonia. Computed tomography scan of the brain reveals cerebral atrophy but no acute intracranial abnormalities. There is more noticeable white matter hypodensity in the right parietal lobe and a small area of cortical infarct possible. She is seen today in consultation on the selective care unit. She is awake and alert in no acute distress. She is oriented 3. She denies any headache dizziness or lightheadedness. No focal deficits. No leukocytosis. Hemoglobin 12.9. Creatinine 1.30. Troponin 0.052, 0.063, 0.082. Influenza screen negative. Urine is clear. She has been afebrile. Hemodynamically stable. No tachycardia. No tachypnea. Maintaining good O2 sat saturations in the high 90s on room air. The patient is seen again today 06/07/2017 in follow-up on the selective care unit. She is awake and alert in no acute distress. She denies any worsening shortness of breath, cough or congestion. She is maintaining good O2 saturations in the 90s on 3 L/m per nasal cannula. She's been afebrile. Hemodynamically stable. She's been nothing by mouth for a barium swallow today which revealed a limited study based on the patient's marketed cervical thoracic kyphosis process, presbyesophagus, mild luminal narrowing at the GE junction. GI services have been consulted. The patient is seen again today 06/08/2017 in follow-up on the selective care unit. She is awake and alert in no acute distress. Computed tomography scan of the brain last evening revealed no acute abnormalities. She's been up with physical therapy ambulating in the hallways. She denies any worsening shortness of breath, cough or congestion. She is maintaining good O2 saturations in the 90s on 2 L/m per nasal cannula. She's been afebrile. The plan is for EGD today. Objective - Vital Signs Vital signs: Vital Signs Temp 97.5 F L 06/08/17 04:00 Pulse 80 06/08/17 08:35 Resp 10 L 06/08/17 04:00 BP 136/65 06/08/17 04:00 Pulse Ox 98 06/08/17 11:24 Intake & Output 06/07/17 06/08/17 06/08/17 18:59 06:59 18:59 Intake Total 100 Output Total 0 Balance 100 Weight 55.5 kg Intake: Oral 100 Output: Stool 0 Other: Voiding Method Diaper Incontinent # Voids 1 1 # Bowel Movements 0 - Exam GENERAL EXAM: Frail, cachectic. Alert, comfortable in no apparent distress. HEAD: Normocephalic. EYES: Normal reaction of pupils, equal size. NOSE: Clear with pink turbinates. THROAT: No erythema or exudates. NECK: No masses, no JVD. CHEST: No chest wall deformity. LUNGS: Equal air entry with no crackles, wheeze, rhonchi or dullness. CVS: S1 and S2 normal with no audible murmur, regular rhythm. ABDOMEN: No hepatosplenomegaly, normal bowel sounds, no guarding or rigidity. SPINE: Severe kyphoscoliosis. SKIN: No rashes CENTRAL NERVOUS SYSTEM: No focal deficits, tone is normal in all 4 extremities. EXTREMITIES: Evidence of rheumatoid arthritis. There is no peripheral edema. No clubbing, no cyanosis. Peripheral pulses are intact. - Labs CBC & Chem 7: 06/05/17 18:20 06/05/17 18:20 Assessment and Plan Assessment: Impression: #1 Altered mental status of unclear etiology. CT scan of the brain revealed no acute intracranial abnormality. There is more noticeable white matter hypodensity in the right parietal lobe and some small area of cortical infarct possible. Follow-up computed tomography scan of the brain done 06/07/2017 revealed no acute intracranial abnormalities. #2 Troponin leaked doubt acute coronary syndrome. #3 History of atrial fibrillation. #4 Fibromyalgia. #5 Rheumatoid arthritis. #6 Hypothyroidism. #7 Hypertension. #8 Acute on chronic renal failure. #9 Dysphagia. Barium swallow revealed a limited study based on her severe kyphoscoliosis. There was presbyesophagus and mild luminal narrowing at the GE junction. The plan is for EGD today 06/08/2017. Plan: The patient was seen and evaluated by Dr. Goel. She is currently stable from the pulmonary standpoint. Plan is for EGD today. We'll continue to follow and make further recommendations based on her clinical status. I, the cosigning physician, performed a history & physical examination of the patient. Lungs sounds are clear. Maintaining good O2 saturations in the 90s on 2 L/m per nasal cannula. I discussed the assessment and plan of care with my nurse practitioner, Lilo Kinsey. I attest to the above on sedation as dictated by her.
[2017-06-08] MEDS: cefTRIAXone IN SWFI 1,000 MG/10 ML SYRINGE IVP SCH (12:44)
--- NOTE | 2017-06-08 13:20 | P.PCN ---
Date of Procedure: 06/08/17 Procedure(s) Performed: BRIEF HISTORY: Patient is a []-year-old, pleasant, white female, scheduled for an upper endoscopy as a part of evaluation of progressive dysphagia to solids for the last several months duration. She had a distal esophageal stricture in October 2013 which was dilated by Dr. Houston. Because of worsening symptoms he scheduled for an upper endoscopy with possible dilation today. PROCEDURE PERFORMED: Esophagogastroduodenoscopy with balloon dilation. PREOPERATIVE DIAGNOSIS: Dysphagia to solids for the last several months duration. IV sedation per anesthesia. PROCEDURE: After informed consent was obtained, the patient was brought into the endoscopy unit. IV sedation was administered by Anesthesia under continuous monitoring. Initially the Olympus GIF-140 video endoscope was inserted into the mouth. Esophagus intubated without any difficulty. It was gradually advanced into the stomach and duodenum and carefully examined. The bulb and the second part of the duodenum appeared normal. The scope at this time was withdrawn to the stomach, adequately insufflated with air, and upon careful examination, mucosa of the antrum, body, cardia and the fundus appeared normal. The scope was then withdrawn into the esophagus. The GE junction was located at 37 cm from the incisors. The esophagus appeared normal. There were no erosions or ulcerations seen. There was a distal esophageal Schatzki's ring identified which did not impede the passage of the scope. At this time I proceeded with a balloon dilation using 15-18 mm TTS balloon for total of 90 seconds in sequential fashion. Rest of the esophagus appeared normal , however there was evidence of esophageal dysmotility and the patient tolerated the procedure well. IMPRESSION: 1. Distal esophageal stricture widely patent Schatzki's ring status post balloon dilation using 15-18 mm TTS balloon as described above. 2. Evidence of esophageal dysmotility. RECOMMENDATIONS: The findings of this examination were discussed with the patient. She will be on clear liquid diet today and diet will be advanced as tolerated tomorrow..
[2017-06-08] MEDS: BACLOFEN 10 MG TAB PO SCH ×2 (13:54→21:03)
[2017-06-08] MEDS: hydrALAZINE HCL 50 MG TAB PO SCH ×3 (13:55→21:03)
[2017-06-08] MEDS: SPIRONOLACTONE 25 MG TAB PO SCH (13:55)
[2017-06-08] MEDS: FUROSEMIDE 20 MG TAB PO SCH ×2 (13:55→17:55)
[2017-06-08] MEDS: PRAMIPEXOLE 0.5 MG TAB PO SCH ×3 (13:55→21:03)
[2017-06-08] MEDS: MONTELUKAST 10 MG TAB PO SCH (13:56)
[2017-06-08] MEDS: FAMOTIDINE 20 MG/2 ML VIAL IV SCH (13:56)
[2017-06-08] MEDS: ASPIRIN 81 MG PO SCH (13:56)
--- NOTE | 2017-06-08 14:09 | P.PN ---
Subjective Progress Note Date: 06/08/17 This patient is a 77-year-old female who was admitted to hospital with increasing confusion and generalized weakness. She initially underwent a computed tomography scan of the brain which revealed a questionable right parietal lobe infarct. She was scheduled for MRI of the brain however this was canceled by the attending physician. We recommended a follow-up computed tomography scan of the brain to be done for comparison. The patient is doing better today. She is more awake and alert. She was able to work with physical therapy and walk in the hallway. The patient underwent follow-up computed tomography scan of the brain yesterday which failed to reveal any acute findings of stroke. She was seen by gastroenterology due to her dysphagia and she has evidence of a presbyesophagus and distal esophageal stricture exacerbated by her kyphoscoliosis. She is scheduled to undergo EGD testing today. Patient has been evaluated for progressive dysphagia over the last several months. She has findings suggesting distal esophageal stricture and will undergo EGD and possible balloon dilatation. Patient otherwise seems to be doing better and is more cognitively awake and alert today. She is following simple questions. Patient is more awake and alert today. She denies any worsening shortness of breath even though she has severe kyphoscoliosis. She is maintaining good oxygen saturations in the 90s with 2 L nasal cannula oxygen. We did review the results of the CAT scan of the brain with the patient. Patient states she was able to work with physical therapy earlier today and was ambulating with the use of her walker. We will continue close neurological follow-up for the patient. Her overall prognosis at this time remains guarded. Objective - Vital Signs Vital signs: Vital Signs Temp 97.5 F L 06/08/17 04:00 Pulse 80 06/08/17 12:06 Resp 10 L 06/08/17 04:00 BP 136/65 06/08/17 04:00 Pulse Ox 98 06/08/17 11:24 Intake & Output 06/07/17 06/08/17 06/08/17 18:59 06:59 18:59 Intake Total 100 Output Total 0 Balance 100 Weight 55.5 kg Intake: Oral 100 Output: Stool 0 Other: Voiding Method Diaper Incontinent # Voids 1 1 1 # Bowel Movements 0 - Exam Physical examination: PHYSICAL EXAMINATION: Patient is resting comfortably in bed. VITAL SIGNS: Blood pressure is [136/65]. Heart rate is [88]. Respiration is [10] . Temperature is [97.5]. HEENT: Head is atraumatic, neck is supple, there were no carotid bruits. CHEST: Lungs are clear to auscultation and percussion. CARDIAC: S1, S2 normal rate and rhythm. There is no murmur. ABDOMEN: Soft and nontender. Bowel sounds are present. EXTREMITIES: There is no pedal edema. Peripheral pulses are present. Neurological examination: Patient is sitting up in chair next to her bed. She is more awake and alert today. She is alert and oriented 3. Speech is fluent with no evidence of any aphasia or dysarthria. Her memory and intellectual functions slightly impaired. Cranial nerve examination: Cranial nerves II through XII grossly intact. Motor examination: There is no focal weakness on examination. Deep tendon reflexes: DTRs are 1+ and symmetric. Plantar responses flexor bilaterally. - Labs CBC & Chem 7: 06/05/17 18:20 06/05/17 18:20 Assessment and Plan (1) Acute encephalopathy Current Visit: Yes Status: Acute Code(s): G93.40 - ENCEPHALOPATHY, UNSPECIFIED SNOMED Code(s): 17329536 (2) CVA (cerebral vascular accident) Current Visit: Yes Status: Acute Code(s): I63.9 - CEREBRAL INFARCTION, UNSPECIFIED SNOMED Code(s): 415511755 (3) Elevated troponin Current Visit: Yes Status: Acute Code(s): R74.8 - ABNORMAL LEVELS OF OTHER SERUM ENZYMES SNOMED Code(s): 169079026 (4) Weight loss Current Visit: Yes Status: Acute Code(s): R63.4 - ABNORMAL WEIGHT LOSS SNOMED Code(s): 46622228 Plan: This patient is a 77-year-old female being evaluated for recent episode of possible TIA versus stroke. Initial computed tomography scan of the brain revealed a questionable right parietal lobe infarct. She had a follow-up computed tomography scan of the brain yesterday which was reviewed and didn't is reported negative for any evidence of acute or chronic stroke at this time. Patient is to undergo EGD study today for distal esophageal stricture. She is otherwise showing good improvement in her overall mental status. We have reviewed the results of the CAT scan today with the patient. There is no evidence of acute stroke based on her last CAT scan of the brain. We will continue close neurological follow-up the patient during this admission. Overall prognosis at this time remains guarded.
--- NOTE | 2017-06-08 15:52 | PN ---
PROGRESS NOTE DATE OF SERVICE: June 08, 2017. PRESENTING COMPLAINT: Tired. INTERVAL HISTORY: This patient was admitted with acute delirium, felt to be from pneumonia. Responded well to antibiotics. Patient is more awake. There is a question about a stroke, but repeat CT scan was done and stroke has been ruled out. The patient really did not have any focal symptoms. The patient also had trouble swallowing and a barium swallow showed evidence of presbyesophagus. The patient had EGD today and Schatzki ring was there which is nonobstructive, but dilatation was carried out. The patient otherwise is perky, awake, sitting up. REVIEW OF SYSTEMS: Done for constitutional, cardiovascular, GI, pulmonary, relevant findings as above. CURRENT MEDICATIONS: Reviewed that include IV ceftriaxone. PHYSICAL EXAMINATION: Temperature 96.9, pulse 81, respiratory 18, blood pressure 128/81, pulse ox 95% 2 L. General appearance sitting on bed, comfortable. EYES: Pupils equal. Conjunctivae are normal. HEENT: External appearance of nose and ears normal. Oral cavity normal. Neck JVD unable to assess. Mass not palpable. Respiratory effort: Lungs decreased breath sounds. Cardiovascular 1st and 2nd sounds normal. No edema. ABDOMEN: Soft, nontender. Liver and spleen not palpable. Psychiatry: Awake, answering questions. INVESTIGATIONS: No blood work from today. ASSESSMENT: 1. Pneumonia suspect gram-negative organism. The patient has responded well to IV ceftriaxone causing acute delirium and delirium has now resolved. 2. Troponin leak from hemodynamic mismatch. No evidence of acute coronary syndrome. 3. Chronic congestive heart failure from diastolic dysfunction. EF 60-65% from underlying coronary artery disease. 4. Coronary artery disease. 5. Essential hypertension. 6. Hypothyroidism. 7. Restless legs syndrome. 8. Moderate persistent asthma with acute exacerbation clinically improved. 9. Fibromyalgia. 10.Gastroesophageal reflux disease. 11.Rheumatoid arthritis. 12.Chronic kidney disease stage 3 from nephrosclerosis. 13.Chronic urinary stress incontinence. 14.Chronic thoracic vertebra fracture. 15.Medical debility with frequent falls. 16.Gait dysfunction uses a walker. 17.Dysphagia from presbyesophagus. 18.Hypertensive heart disease. 19.Schatzki's ring followed by EGD dilatation. PLAN: Continue current medication and treatment plan. Repeat labs in the morning. Discharge planning probably to the [facility]. MMODL / IJN: [id number] /
[2017-06-09] MEDS: CARVEDILOL 12.5 MG TAB PO SCH ×2 (06:48→18:38)
[2017-06-09] MEDS: LEVOTHYROXINE 50 MCG TAB PO SCH (06:48)
[2017-06-09] MEDS: ALBUTEROL NEBULIZED 2.5 MG/3 ML INHALATION PRN ×2 (07:59→11:01)
[2017-06-09] MEDS: FORMOTEROL FUMARATE 20 MCG/2 ML NEBU INHALATION SCH ×2 (07:59→19:50)
[2017-06-09] MEDS: BUDESONIDE 0.5 MG/2 ML NEBU INHALATION SCH ×2 (07:59→19:50)
[2017-06-09] MEDS: cefTRIAXone IN SWFI 1,000 MG/10 ML SYRINGE IVP SCH (08:38)
[2017-06-09] MEDS: BACLOFEN 10 MG TAB PO SCH ×2 (08:38→22:12)
[2017-06-09] MEDS: ASPIRIN 81 MG PO SCH (08:38)
[2017-06-09] MEDS: MONTELUKAST 10 MG TAB PO SCH (08:39)
[2017-06-09] MEDS: hydrALAZINE HCL 50 MG TAB PO SCH ×3 (08:39→22:50)
[2017-06-09] MEDS: FUROSEMIDE 20 MG TAB PO SCH ×2 (08:39→15:47)
[2017-06-09] MEDS: FAMOTIDINE 20 MG/2 ML VIAL IV SCH (08:39)
[2017-06-09] MEDS: PRAMIPEXOLE 0.5 MG TAB PO SCH ×3 (08:40→22:12)
[2017-06-09] MEDS: SPIRONOLACTONE 25 MG TAB PO SCH (08:40)
--- NOTE | 2017-06-09 13:20 | P.PN ---
Subjective Progress Note Date: 06/09/17 This patient is a 77-year-old female who was admitted to hospital with increasing confusion and generalized weakness. She initially underwent a computed tomography scan of the brain which revealed a questionable right parietal lobe infarct. She was scheduled for MRI of the brain however this was canceled by the attending physician. We recommended a follow-up computed tomography scan of the brain to be done for comparison. The patient is doing better today. She is more awake and alert. She was able to work with physical therapy and walk in the hallway. The patient underwent follow-up computed tomography scan of the brain yesterday which failed to reveal any acute findings of stroke. She was seen by gastroenterology due to her dysphagia and she has evidence of a presbyesophagus and distal esophageal stricture exacerbated by her kyphoscoliosis. She is scheduled to undergo EGD testing today. Patient has been evaluated for progressive dysphagia over the last several months. She has findings suggesting distal esophageal stricture and will undergo EGD and possible balloon dilatation. Patient otherwise seems to be doing better and is more cognitively awake and alert today. She is following simple questions. Patient is more awake and alert today. She denies any worsening shortness of breath even though she has severe kyphoscoliosis. She is maintaining good oxygen saturations in the 90s with 2 L nasal cannula oxygen. We did review the results of the CAT scan of the brain with the patient. Patient states she was able to work with physical therapy earlier today and was ambulating with the use of her walker. Patient is more awake and alert today. She is being considered for possible discharge to [facility]. We will continue close neurological follow-up for the patient. Her overall prognosis at this time remains guarded. Objective - Vital Signs Vital signs: Vital Signs Temp 96.9 F L 06/09/17 08:00 Pulse 67 06/09/17 11:42 Resp 18 06/09/17 11:42 BP 123/55 06/09/17 11:42 Pulse Ox 99 06/09/17 11:42 Intake & Output 06/08/17 06/09/17 06/09/17 18:59 06:59 18:59 Intake Total 120 Output Total 200 Balance -80 Weight 55.5 kg 46.6 kg Intake: Oral 120 Output: Urine 200 Stool 0 Other: Voiding Method Diaper Diaper Toilet Incontinent Incontinent Incontinent # Voids 1 2 - Exam Physical examination: PHYSICAL EXAMINATION: Patient is resting comfortably in bed. VITAL SIGNS: Blood pressure is [123/55]. Heart rate is [67]. Respiration is [18] . Temperature is [97.0]. HEENT: Head is atraumatic, neck is supple, there were no carotid bruits. CHEST: Lungs are clear to auscultation and percussion. CARDIAC: S1, S2 normal rate and rhythm. There is no murmur. ABDOMEN: Soft and nontender. Bowel sounds are present. EXTREMITIES: There is no pedal edema. Peripheral pulses are present. Neurological examination: Patient is sitting up in chair next to her bed. She is more awake and alert today. She is alert and oriented 3. Speech is fluent with no evidence of any aphasia or dysarthria. Her memory and intellectual functions slightly impaired. Cranial nerve examination: Cranial nerves II through XII grossly intact. Motor examination: There is no focal weakness on examination. Deep tendon reflexes: DTRs are 1+ and symmetric. Plantar responses flexor bilaterally. - Labs CBC & Chem 7: 06/05/17 18:20 06/05/17 18:20 Assessment and Plan (1) Acute encephalopathy Current Visit: Yes Status: Acute Code(s): G93.40 - ENCEPHALOPATHY, UNSPECIFIED SNOMED Code(s): 20368084 (2) CVA (cerebral vascular accident) Current Visit: Yes Status: Acute Code(s): I63.9 - CEREBRAL INFARCTION, UNSPECIFIED SNOMED Code(s): 993267066 (3) Elevated troponin Current Visit: Yes Status: Acute Code(s): R74.8 - ABNORMAL LEVELS OF OTHER SERUM ENZYMES SNOMED Code(s): 297396591 (4) Weight loss Current Visit: Yes Status: Acute Code(s): R63.4 - ABNORMAL WEIGHT LOSS SNOMED Code(s): 25901686 Plan: This patient is 77-year-old female who was admitted with acute weakness and mental status changes. She has shown significant improvement after being treated for pneumonia. She underwent EGD procedure yesterday which required dilatation. She is seemingly recovered well from this. She is being followed closely by Dr. Du. Patient has shown improvement in her mental status. She likely had a mild metabolic encephalopathy from her pneumonia. She seemingly is now back to baseline. We will continue close neurological follow-up for the patient. She is being considered for discharge to [facility]. Overall prognosis at this time remains guarded.
--- NOTE | 2017-06-09 16:17 | P.PN ---
Subjective Progress Note Date: 06/09/17 Principal diagnosis: Mental status changes Progress note dated 06/09/2017 This is a 77-year-old female with a history of mental status changes, atrial fibrillation fibromyalgia rheumatoid arthritis hypothyroidism hypertension and acute on chronic renal failure. She also has a history of dysphasia. From the pulmonary standpoint, the patient's doing well. The patient has no active pulmonary issues at this time. Feeling well. Apparently waiting for placement to [facility]. The patient denies any coughing wheezing shortness of breath. Not producing any phlegm. No fever or chills. Objective - Vital Signs Vital signs: Vital Signs Temp 96.9 F L 06/09/17 15:51 Pulse 63 06/09/17 15:51 Resp 18 06/09/17 15:51 BP 133/69 06/09/17 15:51 Pulse Ox 95 06/09/17 15:51 Intake & Output 06/08/17 06/09/17 06/09/17 18:59 06:59 18:59 Intake Total 120 300 Output Total 200 200 Balance -80 100 Weight 55.5 kg 46.6 kg Intake: Oral 120 300 Output: Urine 200 200 Stool 0 Other: Voiding Method Diaper Diaper Toilet Incontinent Incontinent Incontinent # Voids 1 2 1 # Bowel Movements 2 - Exam No acute distress, oriented 3. HEENT examination is grossly unremarkable. Mucous membranes are moist. No oral lesions. Neck supple. Full range of motion. No adenopathy thyromegaly or neck vein distention. Cardiovascular examination reveals regular rhythm rate. S1-S2 normal. No S3 or S4. No discernible murmur noted. Lungs reveal clear breath sounds. Her sounds are equal bilaterally. No adventitious lung sounds including wheezes rhonchi or crackles. Abdomen soft bowel sounds are heard. No masses or tenderness. Extremities are intact. No cyanosis clubbing or edema. The patient does have severe kyphoscoliosis. Skin is without rash or lesion. Neurologic examination is brief but nonfocal. - Labs CBC & Chem 7: 06/05/17 18:20 06/05/17 18:20 Assessment and Plan Assessment: Assessment Mental status changes, with relatively normal computed tomography scan of the brain, showing no acute intracranial abnormality. History of atrial fibrillation, stable History of fibromyalgia Stable pulmonary status History of rheumatoid arthritis Hypothyroidism Hypertension Acute on chronic renal fire History of dysphagia Plan: Plan dated 06/09/2017 The patient's respiratory status is currently stable. The patient will be seen as needed. No additional recommendations are made. The patient is waiting for [facility] placement. No active lung or critical care issues at this time. Time with Patient: Less than 30
[2017-06-10] MEDS: HYDROcodone/APAP 10-325MG 1 EACH TAB PO PRN (05:07)
[2017-06-10] MEDS: LEVOTHYROXINE 50 MCG TAB PO SCH (06:08)
[2017-06-10] MEDS: PRAMIPEXOLE 0.5 MG TAB PO SCH ×3 (07:34→21:04)
[2017-06-10] MEDS: MONTELUKAST 10 MG TAB PO SCH (07:34)
[2017-06-10] MEDS: hydrALAZINE HCL 50 MG TAB PO SCH ×3 (07:34→21:04)
[2017-06-10] MEDS: BACLOFEN 10 MG TAB PO SCH ×2 (07:35→20:19)
[2017-06-10] MEDS: ASPIRIN 81 MG PO SCH (07:35)
[2017-06-10] MEDS: FUROSEMIDE 20 MG TAB PO SCH ×2 (07:35→17:21)
[2017-06-10] MEDS: CARVEDILOL 12.5 MG TAB PO SCH ×2 (07:35→17:21)
[2017-06-10] MEDS: SPIRONOLACTONE 25 MG TAB PO SCH (07:36)
[2017-06-10] MEDS: FAMOTIDINE 20 MG/2 ML VIAL IV SCH (07:36)
[2017-06-10] MEDS: FORMOTEROL FUMARATE 20 MCG/2 ML NEBU INHALATION SCH ×2 (07:53→19:01)
[2017-06-10] MEDS: BUDESONIDE 0.5 MG/2 ML NEBU INHALATION SCH ×2 (07:53→19:01)
[2017-06-10] MEDS: ALBUTEROL NEBULIZED 2.5 MG/3 ML INHALATION PRN ×4 (07:53→19:01)
[2017-06-10] MEDS: cefTRIAXone IN SWFI 1,000 MG/10 ML SYRINGE IVP SCH (08:58)
--- NOTE | 2017-06-10 16:43 | P.PN ---
Subjective Progress Note Date: 06/10/17 This patient is a 77-year-old female who was admitted to hospital with increasing confusion and generalized weakness. She initially underwent a computed tomography scan of the brain which revealed a questionable right parietal lobe infarct. She was scheduled for MRI of the brain however this was canceled by the attending physician. We recommended a follow-up computed tomography scan of the brain to be done for comparison. The patient is doing better today. She is more awake and alert. She was able to work with physical therapy and walk in the hallway. The patient underwent follow-up computed tomography scan of the brain yesterday which failed to reveal any acute findings of stroke. She was seen by gastroenterology due to her dysphagia and she has evidence of a presbyesophagus and distal esophageal stricture exacerbated by her kyphoscoliosis. She is scheduled to undergo EGD testing today. Patient has been evaluated for progressive dysphagia over the last several months. She has findings suggesting distal esophageal stricture and will undergo EGD and possible balloon dilatation. Patient otherwise seems to be doing better and is more cognitively awake and alert today. She is following simple questions. Patient is more awake and alert today. She denies any worsening shortness of breath even though she has severe kyphoscoliosis. She is maintaining good oxygen saturations in the 90s with 2 L nasal cannula oxygen. We did review the results of the CAT scan of the brain with the patient. Patient states she was able to work with physical therapy earlier today and was ambulating with the use of her walker. Patient is more awake and alert today. She is being considered for possible discharge to [facility]. Patient states that arrangements are being made for possible transfer to [facility] tomorrow. We will continue close neurological follow-up for the patient. Her overall prognosis at this time remains guarded. Objective - Vital Signs Vital signs: Vital Signs Temp 97.4 F L 06/10/17 07:00 Pulse 68 06/10/17 11:53 Resp 16 06/10/17 08:00 BP 134/61 06/10/17 07:00 Pulse Ox 90 L 06/10/17 07:00 Intake & Output 06/09/17 06/10/17 06/10/17 18:59 06:59 18:59 Intake Total 300 400 120 Output Total 200 0 0 Balance 100 400 120 Weight 45.8 kg Intake: Oral 300 400 120 Output: Urine 200 Stool 0 0 Other: Voiding Method Toilet Toilet Toilet Incontinent Incontinent Incontinent # Voids 1 1 2 # Bowel Movements 2 - Exam Physical examination: PHYSICAL EXAMINATION: Patient is resting comfortably in bed. VITAL SIGNS: Blood pressure is [134/61]. Heart rate is [53]. Respiration is [18] . Temperature is [97.4]. HEENT: Head is atraumatic, neck is supple, there were no carotid bruits. CHEST: Lungs are clear to auscultation and percussion. CARDIAC: S1, S2 normal rate and rhythm. There is no murmur. ABDOMEN: Soft and nontender. Bowel sounds are present. EXTREMITIES: There is no pedal edema. Peripheral pulses are present. Neurological examination: Patient is sitting up in chair next to her bed. She is more awake and alert today. She is alert and oriented 3. Speech is fluent with no evidence of any aphasia or dysarthria. Her memory and intellectual functions slightly impaired. Cranial nerve examination: Cranial nerves II through XII grossly intact. Motor examination: There is no focal weakness on examination. Deep tendon reflexes: DTRs are 1+ and symmetric. Plantar responses flexor bilaterally. - Labs CBC & Chem 7: 06/05/17 18:20 06/05/17 18:20 Assessment and Plan (1) Acute encephalopathy Current Visit: Yes Status: Acute Code(s): G93.40 - ENCEPHALOPATHY, UNSPECIFIED SNOMED Code(s): 32485323 (2) CVA (cerebral vascular accident) Current Visit: Yes Status: Acute Code(s): I63.9 - CEREBRAL INFARCTION, UNSPECIFIED SNOMED Code(s): 506279027 (3) Elevated troponin Current Visit: Yes Status: Acute Code(s): R74.8 - ABNORMAL LEVELS OF OTHER SERUM ENZYMES SNOMED Code(s): 826365189 (4) Weight loss Current Visit: Yes Status: Acute Code(s): R63.4 - ABNORMAL WEIGHT LOSS SNOMED Code(s): 98004240 Plan: This patient is a 77-year-old female initially admitted to hospital for elevation of altered mental status and confusion. She was found to have evidence of a underlying pneumonia for which she was treated. Follow-up CT scans of the brain failed to reveal any evidence of acute stroke. She is doing much better and is near baseline level of function today. She is awaiting transfer to [facility] for ongoing subacute rehab. This may take place tomorrow for the patient. She continues to do well and has been working with physical therapy and her mental status and ambulation is much improved. We will continue close neurological follow-up for the patient. As noted no evidence of acute stroke based on follow-up CAT scan of the brain. Her clinical findings are consistent with a mild metabolic encephalopathy which is now resolved. We will continue to monitor progress closely during this admission.
--- NOTE | 2017-06-10 18:29 | P.PN ---
Subjective Progress Note Date: 06/09/17 Principal diagnosis: Pneumonia and acute delirium Patient is a 77-year-old female with a known history of atrial fibrillation, fibromyalgia, rheumatoid arthritis, hypothyroidism, hypertension and CKD and multiple other medical problems admitted with acute delirium likely due to pneumonia. Patient responded well with antibiotics. Otherwise patient is more awake and oriented today. CT head was done showed no acute intracranial process. Stroke has been ruled out. Patient was having trouble swallowing and a barium swallow evaluation showed evidence presbyesophagus. Patient had EGD and was found to have Schatzki ring which is nonobstructive and dilation was carried out. 06/09/2017 Patient is awake and alert and oriented. Patient says that patient is up to swallow better now. Otherwise patient is being converted on antibiotics for pneumonia. No fever no chills. No other acute overnight issues. Current medications reviewed. All other review of systems negative except the above. Active Medications Hydrocodone Bitart/Acetaminophen ([place] 10) 1 each PO Q6H PRN PRN Reason: Pain Last Admin: 06/10/17 05:07 Dose: 1 each Albuterol Sulfate (Ventolin Nebulized) 2.5 mg INHALATION RT-Q4H PRN PRN Reason: asthma Last Admin: 06/10/17 16:05 Dose: 2.5 mg Aspirin (Aspirin) 81 mg PO DAILY [facility] Last Admin: 06/10/17 07:35 Dose: 81 mg Baclofen (Lioresal) 10 mg PO BID [facility] Last Admin: 06/10/17 07:35 Dose: 10 mg Budesonide (Pulmicort) 0.5 mg INHALATION RT-BID [facility] Last Admin: 06/10/17 07:53 Dose: 0.5 mg Carvedilol (Coreg) 25 mg PO BID-W/MEALS [facility] Last Admin: 06/10/17 17:21 Dose: 25 mg Ceftriaxone Sodium (Rocephin) 1,000 mg IVP Q24HR [facility] Last Admin: 06/10/17 08:58 Dose: 1,000 mg Famotidine (Pepcid) 20 mg IV DAILY [facility] Last Admin: 06/10/17 07:36 Dose: 20 mg Formoterol Fumarate (Perforomist) 20 mcg INHALATION RT-BID [facility] Last Admin: 06/10/17 07:53 Dose: 20 mcg Furosemide (Lasix) 20 mg PO BID@0900,1600 [facility] Last Admin: 06/10/17 17:21 Dose: 20 mg Hydralazine HCl (Apresoline) 100 mg PO TID [facility] Last Admin: 06/10/17 17:21 Dose: 100 mg Levothyroxine Sodium (Synthroid) 50 mcg PO 0630 [facility] Last Admin: 06/10/17 06:08 Dose: 50 mcg Montelukast Sodium (Singulair) 10 mg PO DAILY [facility] Last Admin: 06/10/17 07:34 Dose: 10 mg Pramipexole Dihydrochloride (Mirapex) 0.5 mg PO TID [facility] Last Admin: 06/10/17 17:21 Dose: 0.5 mg Spironolactone (Aldactone) 25 mg PO DAILY [facility] Last Admin: 06/10/17 07:36 Dose: 25 mg Objective - Vital Signs Vital signs: Vital Signs Temp 96.9 F L 06/09/17 08:00 Pulse 67 06/09/17 11:42 Resp 18 06/09/17 11:42 BP 123/55 06/09/17 11:42 Pulse Ox 99 06/09/17 11:42 Intake & Output 06/08/17 06/09/17 06/09/17 18:59 06:59 18:59 Intake Total 120 300 Output Total 200 200 Balance -80 100 Weight 55.5 kg 46.6 kg Intake: Oral 120 300 Output: Urine 200 200 Stool 0 Other: Voiding Method Diaper Diaper Toilet Incontinent Incontinent Incontinent # Voids 1 2 1 # Bowel Movements 2 - Exam PHYSICAL EXAMINATION: Patient is lying in the bed comfortably, no acute distress, awake alert and oriented.. HEENT: Normocephalic. Neck is supple. Pupils reactive. Nostrils clear. Oral cavity is moist. Ears reveal no drainage. Neck reveals no JVD, carotid bruits, or thyromegaly. CHEST EXAMINATION: Trachea is central. Symmetrical expansion. Lung ontiveros clear to auscultation and percussion. Decreased breath sounds bibasilar CARDIAC: Normal S1, S2 with no gallops. No murmurs ABDOMEN: Soft. Bowel sounds normal. No organomegaly. No abdominal bruits. Extremities: reveal no edema. No clubbing or cyanosis Neurologically awake, alert, oriented x3 with well-coordinated movements. No focal deficits noted Skin: No rash or skin lesions. Psychiatric: Coperative. Nonsuicidal Musculoskeletal: No joint swelling or deformity. Normal range of motion. - Labs CBC & Chem 7: 06/05/17 18:20 06/05/17 18:20 Assessment and Plan Assessment: Pneumonia suspected gram-negative organism patient responded well with IV ceftriaxone Acute delirium due to infection resolved now Dysphagia from [place] byesophagus and Schatzki ring. Status post EGD and dilatation on 06/08/2017 Troponin leak due to hemodynamic mismatch. 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 Dysphagia is improved now. We'll advance as tolerated. Pulmonary and neurology has seen the patient. Continue the current management and further recommendations based on the clinical course. Prognosis is guarded with multiple medical problems and comorbid conditions. Time with Patient: Greater than 30
--- NOTE | 2017-06-10 18:30 | P.PN ---
Subjective Progress Note Date: 06/10/17 Principal diagnosis: Pneumonia and acute delirium Patient is a 77-year-old female with a known history of atrial fibrillation, fibromyalgia, rheumatoid arthritis, hypothyroidism, hypertension and CKD and multiple other medical problems admitted with acute delirium likely due to pneumonia. Patient responded well with antibiotics. Otherwise patient is more awake and oriented today. CT head was done showed no acute intracranial process. Stroke has been ruled out. Patient was having trouble swallowing and a barium swallow evaluation showed evidence presbyesophagus. Patient had EGD and was found to have Schatzki ring which is nonobstructive and dilation was carried out. 06/09/2017 Patient is awake and alert and oriented. Patient says that patient is up to swallow better now. Otherwise patient is being converted on antibiotics for pneumonia. No fever no chills. No other acute overnight issues. 06/10/2017 Patient is awake and alert. Able to swallow well at this time. No fever no chills. No other acute overnight issues. Anticipate discharge to rehab in next 24 hours. Current medications reviewed. All other review of systems negative except the above. Active Medications Hydrocodone Bitart/Acetaminophen ([place] 10) 1 each PO Q6H PRN PRN Reason: Pain Last Admin: 06/10/17 05:07 Dose: 1 each Albuterol Sulfate (Ventolin Nebulized) 2.5 mg INHALATION RT-Q4H PRN PRN Reason: asthma Last Admin: 06/10/17 16:05 Dose: 2.5 mg Aspirin (Aspirin) 81 mg PO DAILY [facility] Last Admin: 06/10/17 07:35 Dose: 81 mg Baclofen (Lioresal) 10 mg PO BID [facility] Last Admin: 06/10/17 07:35 Dose: 10 mg Budesonide (Pulmicort) 0.5 mg INHALATION RT-BID [facility] Last Admin: 06/10/17 07:53 Dose: 0.5 mg Carvedilol (Coreg) 25 mg PO BID-W/MEALS [facility] Last Admin: 06/10/17 17:21 Dose: 25 mg Ceftriaxone Sodium (Rocephin) 1,000 mg IVP Q24HR [facility] Last Admin: 06/10/17 08:58 Dose: 1,000 mg Famotidine (Pepcid) 20 mg IV DAILY [facility] Last Admin: 06/10/17 07:36 Dose: 20 mg Formoterol Fumarate (Perforomist) 20 mcg INHALATION RT-BID [facility] Last Admin: 06/10/17 07:53 Dose: 20 mcg Furosemide (Lasix) 20 mg PO BID@0900,1600 [facility] Last Admin: 06/10/17 17:21 Dose: 20 mg Hydralazine HCl (Apresoline) 100 mg PO TID [facility] Last Admin: 06/10/17 17:21 Dose: 100 mg Levothyroxine Sodium (Synthroid) 50 mcg PO 0630 [facility] Last Admin: 06/10/17 06:08 Dose: 50 mcg Montelukast Sodium (Singulair) 10 mg PO DAILY [facility] Last Admin: 06/10/17 07:34 Dose: 10 mg Pramipexole Dihydrochloride (Mirapex) 0.5 mg PO TID [facility] Last Admin: 06/10/17 17:21 Dose: 0.5 mg Spironolactone (Aldactone) 25 mg PO DAILY [facility] Last Admin: 06/10/17 07:36 Dose: 25 mg Objective - Vital Signs Vital signs: Vital Signs Temp 97.3 F L 06/10/17 14:56 Pulse 68 06/10/17 16:20 Resp 18 06/10/17 16:00 BP 123/63 06/10/17 14:56 Pulse Ox 95 06/10/17 14:56 Intake & Output 06/09/17 06/10/17 06/10/17 18:59 06:59 18:59 Intake Total 300 400 120 Output Total 200 0 0 Balance 100 400 120 Weight 45.8 kg Intake: Oral 300 400 120 Output: Urine 200 Stool 0 0 Other: Voiding Method Toilet Toilet Toilet Incontinent Incontinent Incontinent # Voids 1 1 2 # Bowel Movements 2 - Exam PHYSICAL EXAMINATION: Patient is lying in the bed comfortably, no acute distress, awake alert and oriented.. HEENT: Normocephalic. Neck is supple. Pupils reactive. Nostrils clear. Oral cavity is moist. Ears reveal no drainage. Neck reveals no JVD, carotid bruits, or thyromegaly. CHEST EXAMINATION: Trachea is central. Symmetrical expansion. Lung ontiveros clear to auscultation and percussion. Decreased breath sounds bibasilar CARDIAC: Normal S1, S2 with no gallops. No murmurs ABDOMEN: Soft. Bowel sounds normal. No organomegaly. No abdominal bruits. Extremities: reveal no edema. No clubbing or cyanosis Neurologically awake, alert, oriented x3 with well-coordinated movements. No focal deficits noted Skin: No rash or skin lesions. Psychiatric: Coperative. Nonsuicidal Musculoskeletal: No joint swelling or deformity. Normal range of motion. - Labs CBC & Chem 7: 06/05/17 18:20 06/05/17 18:20 Assessment and Plan Assessment: Pneumonia suspected gram-negative organism patient responded well with IV ceftriaxone Acute delirium due to infection resolved now Dysphagia from [place] byesophagus and Schatzki ring. Status post EGD and dilatation on 06/08/2017 Troponin leak due to hemodynamic mismatch. 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 Dysphagia is improved now. We'll advance as tolerated. Pulmonary and neurology has seen the patient. Continue the current management and further recommendations based on the clinical course. Prognosis is guarded with multiple medical problems and comorbid conditions. Time with Patient: Greater than 30
[2017-06-10 21:16] VITALS: RESP 16
[2017-06-11] MEDS: LEVOTHYROXINE 50 MCG TAB PO SCH (06:15)
[2017-06-11 07:52] LABS: Calcium 9.2 mg/dL (8.4-10.2); Potassium 3.5 mmol/L (3.5-5.1)
[2017-06-11] MEDS: PRAMIPEXOLE 0.5 MG TAB PO SCH (08:01)
[2017-06-11] MEDS: CARVEDILOL 12.5 MG TAB PO SCH (08:01)
[2017-06-11] MEDS: ASPIRIN 81 MG PO SCH (08:02)
[2017-06-11] MEDS: cefTRIAXone IN SWFI 1,000 MG/10 ML SYRINGE IVP SCH (08:02)
[2017-06-11] MEDS: hydrALAZINE HCL 50 MG TAB PO SCH (08:02)
[2017-06-11] MEDS: FUROSEMIDE 20 MG TAB PO SCH (08:02)
[2017-06-11] MEDS: BACLOFEN 10 MG TAB PO SCH (08:02)
[2017-06-11] MEDS: FAMOTIDINE 20 MG/2 ML VIAL IV SCH (08:02)
[2017-06-11] MEDS: SPIRONOLACTONE 25 MG TAB PO SCH (08:02)
[2017-06-11] MEDS: MONTELUKAST 10 MG TAB PO SCH (08:02)
[2017-06-11 08:19] VITALS: BP 144/65; TEMP 97.6
[2017-06-11 08:26] LABS: Anisocytosis Slight; Basophils % (A) 0 %; Eosinophils # (A) 0.1 k/uL (0-0.7); Eosinophils % (A) 1 %; HCT 35.4 % (34.0-46.0); HGB 11.7 gm/dL (11.4-16.0); Lymphocytes # (A) 0.7 k/uL (1.0-4.8); Lymphocytes % (A) 7 %; MCH 28.5 pg (25.0-35.0); MCHC 33.1 g/dL (31.0-37.0); MCV 86.2 fL (80.0-100.0); Mean Platelet Volume 9.1; Monocytes # (A) 0.6 k/uL (0-1.0); Monocytes % (A) 6 %; Neutrophils # (A) 7.8 k/uL (1.3-7.7); Neutrophils % (A) 84 %; Platelet Count 186 k/uL (150-450); RBC 4.11 m/uL (3.80-5.40); RDW 17.2 % (11.5-15.5); WBC 9.3 k/uL (3.8-10.6)
[2017-06-11] MEDS: BUDESONIDE 0.5 MG/2 ML NEBU INHALATION SCH (08:26)
[2017-06-11] MEDS: FORMOTEROL FUMARATE 20 MCG/2 ML NEBU INHALATION SCH (08:26)
[2017-06-11] MEDS: ALBUTEROL NEBULIZED 2.5 MG/3 ML INHALATION PRN ×2 (08:26→11:40)
[2017-06-11 08:30] VITALS: PULSE 68
[2017-06-11 09:41] LABS: Poikilocytosis (M) Present; Toxic Granulation Present
[2017-06-11] MEDS: HYDROcodone/APAP 10-325MG 1 EACH TAB PO PRN (12:50)
[2017-06-11 13:56] VITALS: BMI 20.2
--- NOTE | 2017-06-11 14:47 | P.DS ---
Providers Date of admission: 06/05/17 19:38 Expected date of discharge: 06/11/17 Attending physician: Rodrigue Sibley Consults: 06/05/17 19:39 Consult Physician Routine Consulting Provider: Sandi Reed Consult Reason/Comments: Patient known to physician Do you want consulting provider notified?: Yes, Notify in am Consult Physician Routine Consulting Provider: Javier Harrington Consult Reason/Comments: CVA Do you want consulting provider notified?: Yes 06/05/17 23:30 Consult Physician Routine Consulting Provider: Jose Lema Consult Reason/Comments: pos trops Do you want consulting provider notified?: Yes 06/06/17 12:03 Consult Physician Routine Consulting Provider: Jeny Du Consult Reason/Comments: impaired swallowing, food feels "stuck" Do you want consulting provider notified?: Yes Primary care physician: [facility] Course: Discharge Diagnosis Pneumonia suspected gram-negative organism patient responded well with IV ceftriaxone Acute delirium due to infection resolved now Dysphagia from [place] byesophagus and Schatzki ring. Status post EGD and dilatation on 06/08/2017 Troponin leak due to hemodynamic mismatch. 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 Patient responded well with antibiotics. CT head was done showed no acute intracranial process. Stroke has been ruled out. Patient was having trouble swallowing and a barium swallow evaluation showed evidence presbyesophagus. Patient had EGD and was found to have Schatzki ring which is nonobstructive and dilation was carried out. 06/09/2017 Patient is awake and alert and oriented. Patient says that patient is up to swallow better now. Otherwise patient is being converted on antibiotics for pneumonia. No fever no chills. No other acute overnight issues. 06/10/2017 Patient is awake and alert. Able to swallow well at this time. No fever no chills. No other acute overnight issues. 06/11/2017 Patient was seen and examined. No acute overnight issues. Patient was continued on antibiotics. Patient had EGD and dilation was done. Dysphagia is improved now. advance as tolerated. Pulmonary and neurology has seen the patient. Prognosis is guarded with multiple medical problems and comorbid conditions. Patient will be continued on antibiotic course for pneumonia. Blood pressure medications have been titrated and patient was started on aspirin as well. Otherwise patient is stable to be discharged to extended care facility. Discharge physical examination Patient is lying in the bed comfortably, no acute distress, awake alert and oriented.. HEENT: Normocephalic. Neck is supple. Pupils reactive. Nostrils clear. Oral cavity is moist. Ears reveal no drainage. Neck reveals no JVD, carotid bruits, or thyromegaly. CHEST EXAMINATION: Trachea is central. Symmetrical expansion. Lung ontiveros clear to auscultation and percussion. Decreased breath sounds bibasilar CARDIAC: Normal S1, S2 with no gallops. No murmurs ABDOMEN: Soft. Bowel sounds normal. No organomegaly. No abdominal bruits. Extremities: reveal no edema. No clubbing or cyanosis Neurologically awake, alert, oriented x3 with well-coordinated movements. No focal deficits noted Skin: No rash or skin lesions. Psychiatric: Cooperative. Nonsuicidal Musculoskeletal: No joint swelling or deformity. Normal range of motion. Total time taken greater than 35 minutes including 18 minutes for counseling and coordination of care. Patient Condition at Discharge: Stable Plan - Discharge Summary Discharge Rx Participant: No New Discharge Prescriptions: New Carvedilol [Coreg*] 25 mg PO BID-W/MEALS #60 tab Spironolactone [Aldactone] 25 mg PO DAILY 30 Days #30 tab Aspirin 81 mg PO DAILY #30 chew Cefuroxime Axetil [Ceftin] 500 mg PO BID 2 Days #4 tab Continue Multivitamin/Iron/Folic Acid [Centrum Complete Multivit Tab] 1 tab PO DAILY Levothyroxine Sodium [Synthroid] 50 mcg PO DAILY L.acidoph,Paracasei, B.lactis [Probiotic] 1 cap PO DAILY Calcium Carbonate [Calcium] 600 mg PO DAILY Furosemide [Lasix] 20 mg PO BID Baclofen [Lioresal] 10 mg PO BID oxyCODONE-APAP 5-325MG [Percocet 5-325 mg] 1 tab PO Q6HR PRN PRN Reason: Pain Montelukast [Singulair] 10 mg PO DAILY Budesonide [Pulmicort] 0.5 mg INHALATION RT-BID Albuterol Nebulized [Ventolin Nebulized] 2.5 mg INHALATION RT-Q4H PRN PRN Reason: asthma Formoterol Fumarate [Perforomist] 20 mcg INHALATION RT-BID Pramipexole [Mirapex] 0.5 mg PO TID hydrALAZINE HCL [Apresoline] 100 mg PO TID Carboxymethyl/Gly/Poly80/Pf [Refresh Optive Kelvin-3 Drops] 1 dropper BOTH EYES DAILY PRN PRN Reason: dry eyes Discontinued Spironolactone [Aldactone] 25 mg PO BID Amoxicillin 2,000 mg PO ONCE HYDROcodone/APAP 7.5-325MG [[place] 7.5-325] 1 tab PO Q4-6H PRN PRN Reason: Pain Carvedilol [Coreg] 25 mg PO BID Discharge Medication List Levothyroxine Sodium [Synthroid] 50 mcg PO DAILY 11/06/13 [History] Multivitamin/Iron/Folic Acid [Centrum Complete Multivit Tab] 1 tab PO DAILY [History] Calcium Carbonate [Calcium] 600 mg PO DAILY 09/24/15 [History] Furosemide [Lasix] 20 mg PO BID 09/24/15 [History] L.acidoph,Paracasei, B.lactis [Probiotic] 1 cap PO DAILY 09/24/15 [History] Albuterol Nebulized [Ventolin Nebulized] 2.5 mg INHALATION RT-Q4H PRN 06/05/17 [ History] Baclofen [Lioresal] 10 mg PO BID 06/05/17 [History] Budesonide [Pulmicort] 0.5 mg INHALATION RT-BID 06/05/17 [History] Carboxymethyl/Gly/Poly80/Pf [Refresh Optive Kelvin-3 Drops] 1 dropper BOTH EYES DAILY PRN 06/05/17 [History] Formoterol Fumarate [Perforomist] 20 mcg INHALATION RT-BID 06/05/17 [History] Montelukast [Singulair] 10 mg PO DAILY 06/05/17 [History] Pramipexole [Mirapex] 0.5 mg PO TID 06/05/17 [History] hydrALAZINE HCL [Apresoline] 100 mg PO TID 06/05/17 [History] oxyCODONE-APAP 5-325MG [Percocet 5-325 mg] 1 tab PO Q6HR PRN 06/05/17 [History] Aspirin 81 mg PO DAILY #30 chew 06/11/17 [Rx] Carvedilol [Coreg*] 25 mg PO BID-W/MEALS #60 tab 06/11/17 [Rx] Cefuroxime Axetil [Ceftin] 500 mg PO BID 2 Days #4 tab 06/11/17 [Rx] Spironolactone [Aldactone] 25 mg PO DAILY 30 Days #30 tab 06/11/17 [Rx] Follow up Appointment(s)/Referral(s): Nonstaff,Physician [REFERRING] - 1-2 days Discharge Disposition: TRANSFER TO SNF/ECF
[2017-06-11] MEDS ORDERED: SYMBICORT 160-4.5 MCG INHALER INHALATION SCH (20:00)
[2017-06-12] MEDS ORDERED: FAMOTIDINE 20 MG TAB PO SCH (09:00)
== END 2017-06-11 17:17 | DRG 177 ==
LOC: EC 17:35 → 6SEL 19:38 → 5MS5E 06-09 17:15
PROVIDERS: ADMIT Hospitalist; ATTEND Hospitalist
PROC: 0D758ZZ Dilation of Esophagus, Via Natural or Artificial Opening Endoscopic (ICD-10-PCS; principal; 2017-06-08 12:45)
DX: J15.6 Pneumonia due to other Gram-negative bacteria (principal); G93.40 Encephalopathy, unspecified; N17.9 Acute kidney failure, unspecified; F05 Delirium due to known physiological condition; I48.0 Paroxysmal atrial fibrillation; K22.2 Esophageal obstruction; I13.0 Hypertensive heart and chronic kidney disease with heart failure and stage 1 through stage 4 chronic kidney disease, or unspecified chronic kidney disease; I50.32 Chronic diastolic (congestive) heart failure; J45.41 Moderate persistent asthma with (acute) exacerbation; G25.81 Restless legs syndrome; E03.9 Hypothyroidism, unspecified; K21.9 Gastro-esophageal reflux disease without esophagitis; I25.10 Atherosclerotic heart disease of native coronary artery without angina pectoris; K22.4 Dyskinesia of esophagus; M06.9 Rheumatoid arthritis, unspecified; M40.203 Unspecified kyphosis, cervicothoracic region; M79.7 Fibromyalgia; N18.3 Chronic kidney disease, stage 3 (moderate); N39.3 Stress incontinence (female) (male); R29.6 Repeated falls; R47.02 Dysphasia; Z66 Do not resuscitate; Z79.82 Long term (current) use of aspirin; Z79.899 Other long term (current) drug therapy; Z80.0 Family history of malignant neoplasm of digestive organs; Z82.3 Family history of stroke; Z90.710 Acquired absence of both cervix and uterus; Z96.653 Presence of artificial knee joint, bilateral; Z79.890 Hormone replacement therapy; Z79.891 Long term (current) use of opiate analgesic; Z88.6 Allergy status to analgesic agent; Z88.1 Allergy status to other antibiotic agents; Z88.2 Allergy status to sulfonamides; Z88.8 Allergy status to other drugs, medicaments and biological substances
CPT/HCPCS: 36415; 43249; 70450; 71046; 74220; 80048; 80053; 80061; 81003; 82550; 82553; 82803; 83605; 84484; 85025; 85610; 85730; 87502; 93005; 93306; 94640; 96360; 99291

== ENCOUNTER 2017-06-12 21:25 | Inpatient (IN) | payer MEDICARE, BC ==
[2017-06-12] MEDS ORDERED: SODIUM CHLORIDE 0.9% 1,000 ML IV STA (22:26)
[2017-06-12] MEDS ORDERED: SODIUM CHLORIDE 0.9% 500 ML IV STA (22:26)
--- NOTE | 2017-06-12 22:58 | ED ---
General Adult HPI - General Chief complaint: Recheck/Abnormal Lab/Rx Stated complaint: med reaction Time Seen by Provider: 06/12/17 22:20 Source: patient, EMS Mode of arrival: EMS Limitations: no limitations - History of Present Illness Initial comments: This 77-year-old white female presents from [facility] via EMS for problems with swallowing. A call was received from Dr. Ramirez prior to arrival. He states that she cannot swallow and cannot eat. She also is having some nausea and vomiting earlier. She apparently has a history of esophageal strictures and requires periodic esophageal dilation. He apparently gave her shot of promethazine and then she seemed somewhat agitated afterwards and thought she may be having a dystonic reaction. She also has been very drowsy and sleepy recently. She was just admitted to the hospital this past week for pneumonia and is currently on Ceftin. He thinks that she may need another esophageal dilation. The patient is not aware of her conditions to any extent in currently is not having any current medical complaints. It is felt as though there maybe a degree of dementia present. No other identifiable complaints or modifying factors. No difficulty in breathing or chest pain. - Related Data Home Medications Medication Instructions Recorded Confirmed Levothyroxine Sodium [Synthroid] 50 mcg PO DAILY@0800 11/06/13 06/12/17 Multivitamin/Iron/Folic Acid 1 tab PO DAILY@1700 11/06/13 06/12/17 [Centrum Complete Multivit Tab] Calcium Carbonate [Calcium] 600 mg PO DAILY@1700 09/24/15 06/12/17 Furosemide [Lasix] 20 mg PO BID@0800,1400 09/24/15 06/12/17 L.acidoph,Paracasei, B.lactis 1 cap PO DAILY@1700 09/24/15 06/12/17 [Probiotic] Albuterol Nebulized [Ventolin 2.5 mg INHALATION RT-Q4H PRN 06/05/17 06/12/17 Nebulized] Baclofen [Lioresal] 10 mg PO BID@0800,2100 06/05/17 06/12/17 Carboxymethyl/Gly/Poly80/Pf 1 dropper BOTH EYES DAILY PRN 06/05/17 06/12/17 [Refresh Optive Kelvin-3 Drops] Montelukast [Singulair] 10 mg PO DAILY@0800 06/05/17 06/12/17 Pramipexole [Mirapex] 0.5 mg PO TID@0600,1400,209906/05/17 06/12/17 hydrALAZINE HCL [Apresoline] 100 mg PO TID@0600,1400,209906/05/17 06/12/17 Aspirin 81 mg PO DAILY@1700 06/12/17 06/12/17 Bisacodyl [Dulcolax] 10 mg RECTAL DAILY PRN 06/12/17 06/12/17 Budesonide-Formot 160-4.5 Mcg 2 puff INHALATION RT-BID@0800,1700 06/12/17 [Symbicort 160-4.5 Mcg Inhaler] Carvedilol [Coreg*] 25 mg PO BID@0800,1700 06/12/17 06/12/17 Cefuroxime Axetil [Ceftin] 500 mg PO BID@0800,209906/12/17 06/12/17 Magnesium Hydroxide [Milk of 7,200 mg PO ONCE PRN 06/12/17 06/12/17 Magnesia Concentrate] Na Phos,M-B/Na Phos,Di-Ba [Fleet 133 ml RECTAL ONCE PRN 06/12/17 06/12/17 Adult] Promethazine 25mg/Ml 25 mg IV Q6H PRN 06/12/17 06/12/17 Spironolactone [Aldactone] 25 mg PO DAILY@0800 06/12/17 06/12/17 Previous Rx's Medication Instructions Recorded HYDROcodone/APAP 7.5-325MG [[place] 1 tab PO Q6HR PRN #20 tab 06/11/17 7.5-325] Allergies Allergy/AdvReac Type Severity Reaction Status Date / Time adhesive tape AdvReac Rash/Hives Verified 06/12/17 22:00 Calcium Channel Blocking AdvReac Unknown Verified 06/12/17 22:00 Agent Dilt diclofenac sodium AdvReac Rash/Hives Verified 06/12/17 22:00 [From Voltaren] lansoprazole [From Prevacid] AdvReac Diarrhea Verified 06/12/17 22:00 meclofenamate sodium AdvReac Rash/Hives Verified 06/12/17 22:00 [From Meclomen] minocycline [Minocycline] AdvReac Unknown Verified 06/12/17 22:00 NSAIDS (Non-Steroidal AdvReac Unknown Verified 06/12/17 22:00 Anti-Inflamma pregabalin [From Lyrica] AdvReac Swelling Verified 06/12/17 22:00 prochlorperazine AdvReac Dyspnea Verified 06/12/17 22:00 [From Compazine] sertraline HCl [From Zoloft] AdvReac Diarrhea Verified 06/12/17 22:00 Sulfa (Sulfonamide AdvReac Rash/Hives Verified 06/12/17 22:00 Antibiotics) Review of Systems ROS Statement: Those systems with pertinent positive or pertinent negative responses have been documented in the HPI. ROS Other: All systems not noted in ROS Statement are negative. 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, hialtal hernia, shingles>10 years ago, recent fractured thoracic vertebrae, History of Any Multi-Drug Resistant Organisms: None Reported Past Surgical History: Breast Surgery, Hernia Repair, Hysterectomy, Joint Replacement Additional Past Surgical History / Comment(s): ron total knee replacements ; right total shoulder surgery;lumpectomy left breast, deviated septum repari,jaw sx for overbite,DeQuervains release rt wrist, rt wrist tendon lenghtening,d&c, lt knee partial synovectomy 1983,ron carpal tunnel release/ulnar nerve, synovectomy w/partial resection ulnar styloid lt wrist,radioulnar jt,resection ulnar head tendon lt wrist,chondroplasty,lat tibial plateau.exc trapezium w/ ligament reconstruction,arthroplasty lt thumb, esophagus stretched 6 times Past Anesthesia/Blood Transfusion Reactions: Postoperative Nausea & Vomiting ( PONV) Additional Past Anesthesia/Blood Transfusion Reaction / Comment(s): past blood transfusion after knee sx- no reaction. Past Psychological History: Anxiety, Depression Smoking Status: Never smoker Past Alcohol Use History: None Reported Past Drug Use History: None Reported - Past Family History Mother Family Medical History: Cancer, CVA/TIA Additional Family Medical History / Comment(s): tia's and rectal cancer-lived to be 99 Father Additional Family Medical History / Comment(s): at age 59 from als General Exam - General Exam Comments Initial Comments: GENERAL: The patient is well nourished and well hydrated. VITAL SIGNS: Heart rate, blood pressure, respiratory rate reviewed as recorded in nurse's notes. EYES: Pupils are round and reactive. Extraocular movements are intact. No conjunctival / lid redness or swelling. ENT: No external evidence of injury, swelling, or ecchymosis. Airway is patent. Throat is clear. NECK: Nontender. No swelling or evidence of injury. No subcutaneous emphysema. Trachea is midline. No thyroid mass. HEART: Regular rate and rhythm. Good peripheral pulses. LUNGS/CHEST: Breath sounds clear and equal bilaterally. No rales, rhonchi, or wheezes. No ecchymosis, subcutaneous emphysema, or tenderness. ABDOMEN: Abdomen soft without tenderness. No palpable masses or organomegaly. No peritoneal signs. No abdominal wall swelling or ecchymosis. EXTREMITIES: No extremity tenderness. Normal muscle tone and function. No thoracolumbar tenderness. NEUROLOGIC: Sensation is grossly intact. Cranial nerve exam reveals face is symmetrical, tongue is midline, speech is clear. SKIN: No abrasions or ecchymosis is noted. No induration or masses noted. PSYCHIATRIC: Alert and oriented. Appropriate behavior and judgment. Limitations: no limitations Course Vital Signs 06/12/17 21:29 Temperature 98.0 F Pulse Rate 71 Respiratory 16 Rate Blood Pressure 161/76 O2 Sat by Pulse 97 Oximetry Medical Decision Making - Medical Decision Making The patient was seen and examined. All diagnostics were reviewed. The EKG shows a normal sinus rhythm at a rate of 82. There is some T-wave changes in the lateral leads. There is some left ventricular hypertrophy. The patient's ME intervals 196, QRS duration is 80, and the QTC intervals 420. She had an acute abdominal series which shows evidence of a right pleural effusion but no other acute processes. The chest x-ray portion shows evidence of bilateral pleural effusions as well as a degree of congestive heart failure. The patient' s laboratory shows evidence of acute kidney injury with a creatinine of 2.0 with previous at 1.4. The patient has a mild hypokalemia and hypochloremia. Overall, it appears that she is unable to eat or drink. She likely is dehydrated thus causing acute kidney injury. Is felt as though she would benefit from admission to the hospital for further treatment. Case is discussed with internal medicine and they are agreeable to admission. - Lab Data Result diagrams: 06/12/17 22:55 06/12/17 22:55 Lab Results 06/12/17 06/12/17 06/12/17 Range/Units 22:55 22:55 22:55 WBC 9.9 (3.8-10.6) k/uL RBC 4.33 (3.80-5.40) m/uL Hgb 12.7 (11.4-16.0) gm/dL Hct 36.0 (34.0-46.0) % MCV 83.2 (80.0-100.0) fL MCH 29.4 (25.0-35.0) pg MCHC 35.3 (31.0-37.0) g/dL RDW 17.4 H (11.5-15.5) % Plt Count 239 (150-450) k/uL Neutrophils % 80 % Lymphocytes % 10 % Monocytes % 6 % Eosinophils % 1 % Basophils % 1 % Neutrophils # 8.0 H (1.3-7.7) k/uL Lymphocytes # 1.0 (1.0-4.8) k/uL Monocytes # 0.6 (0-1.0) k/uL Eosinophils # 0.1 (0-0.7) k/uL Basophils # 0.1 (0-0.2) k/uL Anisocytosis Slight PT 9.9 (9.0-12.0) sec INR 1.0 (<1.2) APTT 23.6 (22.0-30.0) sec Sodium 139 (137-145) mmol/L Potassium 3.4 L (3.5-5.1) mmol/L Chloride 94 L (98-107) mmol/L Carbon Dioxide 33 H (22-30) mmol/L Anion Gap 12 mmol/L BUN 44 H (7-17) mg/dL Creatinine 2.00 H (0.52-1.04) mg/dL Est GFR (CKD-EPI)AfAm 27 (>60 ml/min/1.73 sqM) Est GFR (CKD-EPI)NonAf 23 (>60 ml/min/1.73 sqM) Glucose 106 H (74-99) mg/dL Calcium 9.7 (8.4-10.2) mg/dL Phosphorus 3.9 (2.5-4.5) mg/dL Magnesium 1.9 (1.6-2.3) mg/dL Total Bilirubin 1.0 (0.2-1.3) mg/dL AST 36 (14-36) U/L ALT 32 (9-52) U/L Alkaline Phosphatase 172 H (38-126) U/L Total Protein 6.2 L (6.3-8.2) g/dL Albumin 3.3 L (3.5-5.0) g/dL Amylase 71 (30-110) U/L Lipase 225 (23-300) U/L Disposition Clinical Impression: Hypokalemia, Dysphagia, Esophageal stricture, Hypertension, Hypochloremia, Bilateral pleural effusion, Acute kidney injury Disposition: ADMITTED IP TO THIS [facility] Condition: Fair Time of Disposition: 00:24 Decision Date: 06/13/17 Decision Time: 00:24
--- NOTE | 2017-06-12 23:06 | XR ---
EXAMINATION TYPE: XR abdomen 2V DATE OF EXAM: 06/12/2017 COMPARISON: NONE HISTORY: Abdominal pain TECHNIQUE: 2 views FINDINGS: There is no sign of intestinal obstruction or pneumoperitoneum. There is oral contrast in t he large bowel. There is no evidence of a mass. There are no pathologic calcifications over the kidne ys. Abdominal aorta shows atheromatous change. There is slight blunting of right costophrenic angle. IMPRESSION: Small right pleural effusion. Nonacute abdomen.
--- NOTE | 2017-06-12 23:09 | XR ---
EXAMINATION TYPE: XR chest 2V DATE OF EXAM: 06/12/2017 COMPARISON: 06/05/2017 HISTORY: Altered mental status difficulty breathing TECHNIQUE: Frontal and lateral views of the chest are obtained. FINDINGS: There is blunting of the costophrenic angles. There is mild pulmonary congestion. Heart ap pears slightly enlarged. There is significant thoracic kyphotic deformity with anterior wedging of th oracic multiple vertebra. IMPRESSION: There is mild pulmonary congestion similar to old exam. Small pleural effusions.
[2017-06-12 23:16] LABS: Partial Thromboplastin Time 23.6 sec (22.0-30.0); Prothrombin Time 9.9 sec (9.0-12.0)
[2017-06-12 23:19] LABS: Anisocytosis Slight; Basophils # (A) 0.1 k/uL (0-0.2); Basophils % (A) 1 %; Eosinophils # (A) 0.1 k/uL (0-0.7); Eosinophils % (A) 1 %; HGB 12.7 gm/dL (11.4-16.0); Lymphocytes % (A) 10 %; MCH 29.4 pg (25.0-35.0); MCHC 35.3 g/dL (31.0-37.0); MCV 83.2 fL (80.0-100.0); Mean Platelet Volume 8.6; Monocytes # (A) 0.6 k/uL (0-1.0); Monocytes % (A) 6 %; Neutrophils % (A) 80 %; Platelet Count 239 k/uL (150-450); RBC 4.33 m/uL (3.80-5.40); RDW 17.4 % (11.5-15.5); WBC 9.9 k/uL (3.8-10.6)
[2017-06-12 23:27] LABS: Albumin 3.3 g/dL (3.5-5.0); Calcium 9.7 mg/dL (8.4-10.2); Phosphorus 3.9 mg/dL (2.5-4.5); Potassium 3.4 mmol/L (3.5-5.1); Total Protein 6.2 g/dL (6.3-8.2)
[2017-06-13] MEDS ORDERED: NALOXONE 0.4 MG/ML 1 ML VIAL IV PRN (00:25)
[2017-06-13] MEDS ORDERED: ONDANSETRON 4 MG/2 ML VIAL IVP PRN (00:25)
[2017-06-13] MEDS ORDERED: ACETAMINOPHEN TAB 325 MG TAB PO PRN (00:25)
[2017-06-13] MEDS ORDERED: ARTIFICIAL TEARS-HYPROMELLOSE DROPS 15 ML BTL BOTH EYES PRN (00:29)
[2017-06-13] MEDS ORDERED: PROMETHAZINE IV PRN (00:29)
[2017-06-13] MEDS ORDERED: MAGNESIUM HYDROXIDE 2,400 MG/10 ML CUP PO PRN (00:29)
[2017-06-13] MEDS ORDERED: BISACODYL 10 MG SUPP RECTAL PRN (00:29)
[2017-06-13] MEDS ORDERED: NA PHOS,M-B/NA PHOS,DI-BA 133 ML ENEMA RECTAL PRN (00:29)
[2017-06-13] MEDS ORDERED: HYDROcodone/APAP 7.5-325MG 1 EACH TAB PO PRN (00:29)
[2017-06-13] MEDS ORDERED: Potassium Replacement Protocol 1 EACH MISC MISCELLANE PRN (01:17)
[2017-06-13 01:44] VITALS: BMI 21.8
[2017-06-13] MEDS: POTASSIUM CHLORIDE ER 20 MEQ TAB.ER PO SCH ×2 (01:46→04:35)
[2017-06-13] MEDS: POTASSIUM CHLORIDE 10 MEQ in SODIUM CHLORIDE 0.9% 100 ML IV SCH ×2 (05:15→09:40)
[2017-06-13] MEDS: hydrALAZINE HCL 50 MG TAB PO SCH ×2 (06:06→14:27)
[2017-06-13] MEDS: PRAMIPEXOLE 0.5 MG TAB PO SCH ×2 (06:06→14:27)
[2017-06-13] MEDS ORDERED: PROMETHAZINE INJ 25 MG in SODIUM CHLORIDE 0.9% 50 ML IVPB PRN (07:19)
[2017-06-13 07:58] VITALS: BP 123/56; RESP 18; TEMP 98.3
[2017-06-13] MEDS: ALBUTEROL NEBULIZED 2.5 MG/3 ML INHALATION PRN ×2 (07:58→11:58)
[2017-06-13] MEDS ORDERED: MONTELUKAST 10 MG TAB PO SCH (08:00)
[2017-06-13] MEDS ORDERED: BACLOFEN 10 MG TAB PO SCH (08:00)
[2017-06-13] MEDS ORDERED: SYMBICORT 160-4.5 MCG INHALER INHALATION SCH (08:00)
[2017-06-13] MEDS ORDERED: SPIRONOLACTONE 25 MG TAB PO SCH (08:00)
[2017-06-13] MEDS ORDERED: CEFUROXIME 250 MG TAB PO SCH (08:00)
[2017-06-13] MEDS ORDERED: CARVEDILOL 12.5 MG TAB PO SCH (08:00)
[2017-06-13] MEDS ORDERED: LEVOTHYROXINE 50 MCG TAB PO SCH (08:00)
[2017-06-13] MEDS ORDERED: FAMOTIDINE 20 MG/2 ML VIAL IV SCH (09:00)
[2017-06-13] MEDS ORDERED: ENOXAPARIN 40 MG/0.4 ML SYRINGE SQ SCH (09:00)
--- NOTE | 2017-06-13 09:21 | P.CONS ---
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 Previous barium swallow 06/07/2017 reported presbyesophagus and mild luminal narrowing at the GE junction. Patient was brought in from the [facility] with a possible ALLERGIC reaction to receiving Compazine. Nursing reports no episodes of nausea vomiting difficulty breathing or fever. White count 9.9. Hemoglobin 12.7. INR 1.0. BUN 44. Creatinine 2.0. Chest x-ray mild pulmonary congestion and similar to old exam small pleural effusions. Abdominal x-ray nonacute. Tolerating morning medications without difficulty. Review of Systems Constitutional: Denies fever, chills, sweats, weight gain, or loss. HEENT: Negative for migraines, blurred vision or loss, earaches, drainage, tinnitus, oral mucosal lesions, dysphagia, or odynophagia. CARDIAC: Atrial fibrillation. Hypertension. Negative for chest pain, arrhythmias, or palpitation. RESPIRATORY: Asthma. History of pneumonia. Negative for shortness of breath, hemoptysis, cough, or sputum production. GI: See HPI for pertinent findings. : Negative for hematuria, urgency, frequency, polyuria, or dysuria. GYNc: Denies possibility of . Negative vaginal discharge. MUSCULOSKELETAL: Negative for muscle aches, swelling, arthritis, and arthralgias. NEUROLOGIC: Negative for stroke or TIA. ENDOCRINE: Rheumatoid arthritis. History of hypothyroidism.. SKIN: Negative for rash or itching. PSYCHIATRIC: History of anxiety. History of depression. 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, hialtal hernia, shingles>10 years ago, recent fractured thoracic vertebrae, History of Any Multi-Drug Resistant Organisms: None Reported Past Surgical History: Breast Surgery, Hernia Repair, Hysterectomy, Joint Replacement Additional Past Surgical History / Comment(s): ron total knee replacements ; right total shoulder surgery;lumpectomy left breast, deviated septum repari,jaw sx for overbite,DeQuervains release rt wrist, rt wrist tendon lenghtening,d&c, lt knee partial synovectomy 1983,ron carpal tunnel release/ulnar nerve, synovectomy w/partial resection ulnar styloid lt wrist,radioulnar jt,resection ulnar head tendon lt wrist,chondroplasty,lat tibial plateau.exc trapezium w/ ligament reconstruction,arthroplasty lt thumb, esophagus stretched 6 times Past Anesthesia/Blood Transfusion Reactions: Postoperative Nausea & Vomiting ( PONV) Additional Past Anesthesia/Blood Transfusion Reaction / Comm: past blood transfusion after knee sx- no reaction. Past Psychological History: Anxiety, Depression Additional Psychological History / Comment(s): at time of this admisson pt feels maintained on her medications,. no thoughts of harming self. Single, never , no children. Used to work in the medical field, inpatient care. No history of tobacco use. No history of alcohol abuse. History of recreational drug use. No experience. The travels outside of [place]. Has a pet canary in the home but no other animal exposures Smoking Status: Never smoker Past Alcohol Use History: None Reported Past Drug Use History: None Reported - Past Family History Mother Family Medical History: Cancer, CVA/TIA Additional Family Medical History / Comment(s): tia's and rectal cancer-lived to be 99 Father Additional Family Medical History / Comment(s): at age 59 from als Medications and Allergies Home Medications Medication Instructions Recorded Confirmed Type Levothyroxine Sodium [Synthroid] 50 mcg PO DAILY@0800 11/06/13 06/12/17 History Multivitamin/Iron/Folic Acid 1 tab PO DAILY@1700 11/06/13 06/12/17 History [Centrum Complete Multivit Tab] Calcium Carbonate [Calcium] 600 mg PO DAILY@1700 09/24/15 06/12/17 History Furosemide [Lasix] 20 mg PO BID@0800,1400 09/24/15 06/12/17 History L.acidoph,Paracasei, B.lactis 1 cap PO DAILY@1700 09/24/15 06/12/17 History [Probiotic] Albuterol Nebulized [Ventolin 2.5 mg INHALATION RT-Q4H PRN 06/05/17 06/12/17 History Nebulized] Baclofen [Lioresal] 10 mg PO BID@0800,2100 06/05/17 06/12/17 History Carboxymethyl/Gly/Poly80/Pf 1 dropper BOTH EYES DAILY PRN 06/05/17 06/12/17 History [Refresh Optive Kelvin-3 Drops] Montelukast [Singulair] 10 mg PO DAILY@0800 06/05/17 06/12/17 History Pramipexole [Mirapex] 0.5 mg PO TID@0600,1400,209906/05/17 06/12/17 History hydrALAZINE HCL [Apresoline] 100 mg PO TID@0600,1400,209906/05/17 06/12/17 History HYDROcodone/APAP 7.5-325MG [[place] 1 tab PO Q6HR PRN #20 tab 06/11/17 06/12/17 Rx 7.5-325] Aspirin 81 mg PO DAILY@1700 06/12/17 06/12/17 History Bisacodyl [Dulcolax] 10 mg RECTAL DAILY PRN 06/12/17 06/12/17 History Budesonide-Formot 160-4.5 Mcg 2 puff INHALATION RT-BID@0800,1700 06/12/17 History [Symbicort 160-4.5 Mcg Inhaler] Carvedilol [Coreg*] 25 mg PO BID@0800,1700 06/12/17 06/12/17 History Cefuroxime Axetil [Ceftin] 500 mg PO BID@0800,209906/12/17 06/12/17 History Magnesium Hydroxide [Milk of 7,200 mg PO ONCE PRN 06/12/17 06/12/17 History Magnesia Concentrate] Na Phos,M-B/Na Phos,Di-Ba [Fleet 133 ml RECTAL ONCE PRN 06/12/17 06/12/17 History Adult] Promethazine 25mg/Ml 25 mg IV Q6H PRN 06/12/17 06/12/17 History Spironolactone [Aldactone] 25 mg PO DAILY@0800 06/12/17 06/12/17 History Allergies Allergy/AdvReac Type Severity Reaction Status Date / Time adhesive tape AdvReac Rash/Hives Verified 06/12/17 22:00 Calcium Channel Blocking AdvReac Unknown Verified 06/12/17 22:00 Agent Dilt diclofenac sodium AdvReac Rash/Hives Verified 06/12/17 22:00 [From Voltaren] lansoprazole [From Prevacid] AdvReac Diarrhea Verified 06/12/17 22:00 meclofenamate sodium AdvReac Rash/Hives Verified 06/12/17 22:00 [From Meclomen] minocycline [Minocycline] AdvReac Unknown Verified 06/12/17 22:00 NSAIDS (Non-Steroidal AdvReac Unknown Verified 06/12/17 22:00 Anti-Inflamma pregabalin [From Lyrica] AdvReac Swelling Verified 06/12/17 22:00 prochlorperazine AdvReac Dyspnea Verified 06/12/17 22:00 [From Compazine] sertraline HCl [From Zoloft] AdvReac Diarrhea Verified 06/12/17 22:00 Sulfa (Sulfonamide AdvReac Rash/Hives Verified 06/12/17 22:00 Antibiotics) Physical Exam Vitals: Vital Signs Temp Pulse Pulse Resp BP BP Pulse Ox 06/13/17 06:04 64 131/60 06/13/17 01:20 98.2 F 70 16 158/68 98 06/13/17 00:51 60 16 118/68 95 06/12/17 21:29 98.0 F 71 16 161/76 97 Intake and Output 06/12/17 06/13/17 06/13/17 22:59 06:59 14:59 Other: # Voids 1 Weight 45.813 kg 45.813 kg General appearance: The patient is alert, in no acute distress. Hard of hearing. HET: Head is normocephalic and atraumatic. Pupils are equal and reactive. Oropharynx is clear without lesions. Neck: Supple without lymphadenopathy. Trachea midline. Kyphosis present. Heart: S1 S2. Regular rate and rhythm. Lungs: No crackles or wheezes are heard. Abdomen: Soft, nontender, nondistended with bowel sounds. No peritoneal signs. No palpable organomegaly or masses. Extremities: Normal skin color and turgor. No cyanosis, rash, ulceration, clubbing, or edema. Radial and pedal pulses are 2/4 bilaterally. Neurological: No focal deficits. Strength and sensation are grossly intact. Results CBC & Chem 7: 06/12/17 22:55 06/13/17 03:08 Labs: Abnormal Lab Results - Last 24 Hours (Table) 06/12/17 06/12/17 Range/Units 22:55 22:55 RDW 17.4 H (11.5-15.5) % Neutrophils # 8.0 H (1.3-7.7) k/uL Potassium 3.4 L (3.5-5.1) mmol/L Chloride 94 L (98-107) mmol/L Carbon Dioxide 33 H (22-30) mmol/L BUN 44 H (7-17) mg/dL Creatinine 2.00 H (0.52-1.04) mg/dL Glucose 106 H (74-99) mg/dL Alkaline Phosphatase 172 H (38-126) U/L Total Protein 6.2 L (6.3-8.2) g/dL Albumin 3.3 L (3.5-5.0) g/dL Chest x-ray: report reviewed (Dr. Romeo) US - abdomen: report reviewed (Dr. Romeo) Assessment and Plan (1) Dysphagia Narrative/Plan: 77-year-old female admitted with possible reaction to Compazine with increased confusion possible dysphagia recent EGD evaluation 06/08/2017 with dilation secondary to Schatzki's ring with underlying presbyesophagus. Presently tolerating oral medications without dysphagia odynophagia nausea vomiting or emesis. Current Visit: Yes Status: Acute Code(s): R13.10 - DYSPHAGIA, UNSPECIFIED SNOMED Code(s): 36589994 Plan: 1. Diet as tolerated. Observe. No further workup at this time. We'll continue to follow with you. Thank you for this kind referral and the opportunity to participate in the care of your patient. This consultation was discussed with Dr. Romeo. The impression and plan of care have been directed as dictated.
[2017-06-13] MEDS: FUROSEMIDE 20 MG TAB PO SCH ×2 (09:43→14:27)
[2017-06-13 12:12] VITALS: PULSE 76
[2017-06-13] MEDS ORDERED: LACTOBACILLUS ACIDOPH & BULGAR 1 EACH PACKET PO SCH (17:00)
[2017-06-13] MEDS ORDERED: MULTIVITAMINS, THERA 1 EACH TAB PO SCH (17:00)
[2017-06-13] MEDS ORDERED: CALCIUM CARBONATE 500 MG CHEWABLE PO SCH (17:00)
[2017-06-13] MEDS ORDERED: ASPIRIN 81 MG PO SCH (17:00)
[2017-06-14] MEDS ORDERED: ENOXAPARIN 30 MG/0.3 ML SYRINGE SQ SCH (09:00)
[2017-06-14] MEDS ORDERED: FAMOTIDINE 20 MG TAB PO SCH (09:00)
== END 2017-06-13 16:05 | DRG 948 ==
LOC: EC 21:25 → 5MS5E 06-13 00:24
PROVIDERS: ADMIT Hospitalist; ATTEND Hospitalist
DX: R41.0 Disorientation, unspecified (principal); N17.9 Acute kidney failure, unspecified; J45.41 Moderate persistent asthma with (acute) exacerbation; I50.32 Chronic diastolic (congestive) heart failure; E87.8 Other disorders of electrolyte and fluid balance, not elsewhere classified; R13.10 Dysphagia, unspecified; E86.0 Dehydration; I11.0 Hypertensive heart disease with heart failure; I48.91 Unspecified atrial fibrillation; E03.9 Hypothyroidism, unspecified; E87.6 Hypokalemia; F32.9 Major depressive disorder, single episode, unspecified; F41.9 Anxiety disorder, unspecified; G25.81 Restless legs syndrome; K21.9 Gastro-esophageal reflux disease without esophagitis; T43.3X5A Adverse effect of phenothiazine antipsychotics and neuroleptics, initial encounter; M06.9 Rheumatoid arthritis, unspecified; M79.7 Fibromyalgia; I25.10 Atherosclerotic heart disease of native coronary artery without angina pectoris; I13.10 Hypertensive heart and chronic kidney disease without heart failure, with stage 1 through stage 4 chronic kidney disease, or unspecified chronic kidney disease; N18.3 Chronic kidney disease, stage 3 (moderate); M40.209 Unspecified kyphosis, site unspecified; K44.9 Diaphragmatic hernia without obstruction or gangrene; H91.90 Unspecified hearing loss, unspecified ear; N39.3 Stress incontinence (female) (male); R26.9 Unspecified abnormalities of gait and mobility; R29.6 Repeated falls; K22.8 Other specified diseases of esophagus; Z79.51 Long term (current) use of inhaled steroids; Z79.82 Long term (current) use of aspirin; Z79.899 Other long term (current) drug therapy; Z96.653 Presence of artificial knee joint, bilateral; Z90.710 Acquired absence of both cervix and uterus; Z88.6 Allergy status to analgesic agent; Z88.2 Allergy status to sulfonamides; Z88.8 Allergy status to other drugs, medicaments and biological substances; Y92.129 Unspecified place in nursing home as the place of occurrence of the external cause
CPT/HCPCS: 36415; 71046; 74019; 80053; 82150; 83690; 83735; 84100; 84132; 85025; 85610; 85730; 93005; 94640; 96360; 96361; 99285